=== PATIENT | male | born 1955 | race Caucasian/White ===

== ENCOUNTER → 2016-12-08 | Outpatient (CLI) | payer BC ==
[~2016-12-08] MED LIST: AMOX500T PO; ASPCH81 PO; CITA10TA8 PO; FLV1 PO; HYDC25 PO; LISI40TA PO; MULTTAB58 PO; PANT40TA PO; SIMV40TA2 PO; SPIR50TA2 PO
[2016-12-08 10:22] LABS: ESTIMATED AVERAGE GLUCOSE 131 mg/dl; HA1C FLAG Normal (Normal)
[2016-12-08 10:25] LABS: ALT/SGPT 140 U/L (12-78); AST/SGOT 115 U/L (15-37); BLOOD UREA NITROGEN 17 mg/dl (7-18); CARBON DIOXIDE 29 mmol/L (21-32); CHLORIDE 105 mmol/L (98-107); CHOLESTEROL 237 mg/dl (0-200); CREATININE 0.75 mg/dl (0.60-1.40); GLUCOSE 117 mg/dl (70-99); POTASSIUM 4.2 mmol/L (3.5-5.1); SODIUM 142 mmol/L (136-145); TRIGLYCERIDES 127 mg/dl (0-150); VERY LOW DENSITY LIPOPROT CALC 25 mg/dl
[2016-12-08 10:35] LABS: CHOLESTEROL/HDL RATIO 3.9; HDL CHOLESTEROL 61 mg/dl; LDL CHOLESTEROL CALCULATED 151 mg/dl
== END | disposition home or self-care (01) ==
LOC: C.LAB 08:38
DX: I10 Essential (primary) hypertension (principal); E78.5 Hyperlipidemia, unspecified; E03.9 Hypothyroidism, unspecified; E88.81 Metabolic syndrome and other insulin resistance

== ENCOUNTER 2025-08-20 13:18 | Inpatient (IN) ==
[2025-08-20] MEDS: diphenhydrAMINE 50 MG/ML VIAL IV STA (13:48)
[2025-08-20] MEDS ORDERED: STAT IV Infusion **Titration per Protocol STA ×2 (13:52→14:17)
[2025-08-20] MEDS: RAPID SEQUENCE INDUCTION BAG ONE (13:58)
[2025-08-20 14:02] LABS: Hematocrit (blood only) 39.9 % (42.0-52.0); Hemoglobin 13.9 g/dL (14.0-18.0); Immature Granulocytes # (auto) 0.01 K/uL (0.01-0.20); Immature Granulocytes % (auto) 0.2 %; Mean Corpuscular Hemoglobin 32.0 pg (25.0-34.0); Mean Corpuscular Volume 91.7 fL (80.0-100.0); Platelet Count 226 K/uL (130-400); RDW Standard Deviation 43.8 fL (36.4-46.3); Red Blood Count 4.35 M/uL (4.70-6.10); White Blood Count 5.95 K/ul (4.8-10.8)
[2025-08-20] MEDS ORDERED: SUCCINYLCHOLINE CHLORIDE 20 MG/ML 10 ML VIAL IV ONE (14:04)
[2025-08-20] MEDS ORDERED: ETOMIDATE 2 MG/ML 20 ML VIAL IV ONE (14:04)
[2025-08-20] MEDS ORDERED: MIDAZOLAM HCL 5 MG/ML 1 ML VIAL IV ONE (14:04)
[2025-08-20] MEDS: PROPOFOL BOLUS FROM BAG IV PRN (14:08)
[2025-08-20] MEDS: PROPOFOL BOLUS FROM BAG IV ONE (14:12)
[2025-08-20] MEDS: fentaNYL citrate 2,500 MCG/250 ML BAG IV SCH (14:12)
[2025-08-20 14:14] LABS: Alanine Aminotransferase 65.0 U/L (7-52); Albumin Globulin Ratio 1.1 (0.9-2); Albumin Level 4.2 gm/dl (3.4-5.0); Alkaline Phosphatase 91.0 U/L (34-104); Anion Gap 10.0 (3-11); Bilirubin,Total 1.0 mg/dl (0.2-1.0); Blood Urea Nitrogen 19.0 mg/dl (6-23); Calcium 9.8 mg/dl (8.6-10.3); Carbon Dioxide 26.0 mmol/L (21-32); Chloride 98.0 mmol/L (98-107); Creatinine Clr Calc Pharmacy 107.8 ml/min; Globulin 3.7 gm/dl (2.5-4.0); Glucose 221.0 mg/dl (70-99(Fasting)); Potassium 3.4 mmol/L (3.5-5.1); Sodium 134.0 mmol/L (136-145); Total Protein 7.9 gm/dl (6.0-8.3)
--- NOTE | 2025-08-20 14:25 | Emergency Department Note ---
Impression & Plan Angioedema due to angiotensin converting enzyme inhibitor (CHRISTI-I), Required emergent intubation, Hypokalemia, Acute hyponatremia ED Provider Note NAME: VAMSI BAKER AGE: 69 SEX: M : 1955 ARRIVES VIA: Ambulance INFORMANT: Patient, EMS ED PROVIDER(S): Esa Lowery DO CHIEF COMPLAINT: tongue swelling HPI: This is a 69-year-old male with the PMHx of HTN, HLD, LYNN on CPAP (noncomplaint), and morbid obesity presenting to [facility] for further evaluation of tongue swelling. Patient is accompanied by EMS who provide additional history. Patient states is now difficult for him to breathe as well as swallow saliva. Patient reports significant tongue swelling. He states this started abruptly at 1130 this morning. Patient states that he takes lisinopril but has taken this for a number of years. They deny fever or chills. No cough or congestion. Denies chest pain or palpitations. They deny abdominal pain, nausea and vomiting. No urinary complaints. No recent changes in bowel movements. Patient denies recent changes in medications or OTC supplements. Patient offers no other complaints, today. ADDITIONAL HISTORY OBTAINED: Per HPI Chronic Medical/Social Conditions Affecting Care: Per HPI PAST MEDICAL HISTORY: See Below PAST SURGICAL HISTORY: See Below FAMILY HISTORY: See Below SOCIAL HISTORY: See Below HOME MEDICATIONS: See Below ALLERGIES: See Below VITALS: See Below PHYSICAL EXAMINATION: GENERAL: Sitting up in bed, alert, well appearing, well nourished, no distress, non-toxic EYE EXAM: normal conjunctiva. OROPHARYNX: severe tongue swelling, L >> R. Difficult to visualize oropharynx. NECK: supple, no nuchal rigidity, no adenopathy, non-tender LUNGS: Clear to auscultation. Normal chest wall mechanics HEART: no murmurs, regular rate, regular rhythm ABDOMEN: abdomen soft, non-tender, no masses, no rebound or guarding. BACK: Back is symmetrical on inspection and there is no deformity, no midline tenderness, no CVA tenderness. SKIN: no rashes and no bruising UPPER EXTREMITIES: upper extremities are grossly normal. LOWER EXTREMITIES: No pitting edema. NEURO EXAM: Normal sensorium, GCS 15, normal speech, no gross weakness of arms, no gross weakness of legs. MEDICAL DECISION MAKING: Differential diagnoses includes but not limited to angioedema, allergic reaction, anaphylaxis, electrolyte derangements In summary, this is a 69 year old male who presented with angioedema. Differential as above. Nursing notes and pertinent past medical records reviewed. Vital signs reviewed and the patient is mildly tachycardic but otherwise afebrile and HDS. No evidence of systemic involvement or hemodynamic instability to suggest anaphylaxis. History and presentation revealed sudden onset of tongue swelling now with difficulty swallowing and controlling secretions. He is subjectively dyspneic as well. Physical examination revealed as above. As a result of my initial evaluation, the primary concern is impeding respiratory failure and airway compromise in the setting of angioedema. IV access was established and the patient was placed on CCRM. Therapeutics ordered include IV Benadryl, steroids and TXA bolus. Discussed extensively with patient and will proceed with elective but emergent intubation. Diagnostics interpreted by me include EKG and cardiac monitoring as listed below: -Cardiac Monitoring: An order was placed for continuous cardiac monitoring. The monitor shows a rate of 60-100s with regular rhythm. -ECG: normal sinus rhythm ventricular rate of beats. Patient no significant ST changes to suggest STEMI. There is a first-degree AV block. No significant interval changes otherwise. Patient completed laboratory studies and imaging. Results independently interpreted by me are mild anemia. No significant leukocytosis. Mild hyponatremia and hypokalemia. Mild hyperglycemia. Normal kidney function. AST > ALT elevation. Normal lactate. The patient was managed with emergent intubation and medications as above. ETT was 26cm at the teeth but still swallow on CXR as independently interpreted by me. He is ventilating and oxygenating appropriately. Will leave ETT at this place for now. Sedation was extremely difficult. He originally was on propofol with IVP Fentanyl and Midazolam. He was attempting to pull ETT and lines. Further boluses were attempted with minimal improvement. Precedex added with improvement. Thought to be beneficial in the setting of likely alcohol use disorder. Fentanyl gtt started. Unfortunately, the patient became progressively hypotensive and bradycardic on these medications. At this time, Precedex was discontinued and ketamine bolus with infusion was started. Patient had improvement in sedation following these medications. Patient remained relatively hemodynamically stable. Patient will need close observation in the ICU given his angioedema. He will require life long cessation from ACEi/ARB. Ultimately, the decision was made to admit the patient for angioedema with airway compromise. Patient was discussed with both the [facility], Dr. Paz, and [facility], Dr. Bloom. I discussed the case with the hospitalist service via telephone/TigerText and they are agreeable to admit the patient to their services. Based on the above, including the patient's age, coexisting illnesses, labs, imaging, and exam findings the decision to treat as an inpatient. I discussed the patient with the hospitalist team who recommended admission to their services. They received the medications, treatments, interventions indicated above and their condition remained critical but stable. I discussed my findings with the patient and their family and they understand and agree with the treatment plan. All patient / family questions were answered to their satisfaction. He Attempted call to patient's sister without answer x2. Consults/Care Managements Discussions: Per MDM ER treatment provided: See above Procedures: Endotracheal Intubation Indication: failure to protect airway, angioedema. The patient was on 100% oxygen via NRB prior to the procedure. Suction, airway equipment, RSI drugs, respiratory equipment, and appropriate personnel were prepared prior to the initiation of the procedure. A time out was taken. Induction was performed with etomidate and Carina. After observing the clinical benefit of the medications, the airway was easily visualized utilizing a GlideScope. A 7.5 size ETT tube was placed atraumatically to 26 cm using standard technique. The cuff inflated without signs of malfunction. There were bilateral breath sounds, positive colormetric change, no gastric sounds, a good capnography waveform, and post procedure pulse oximetry was 96%. Post intubation sedation and paralysis was administered using fentanyl IVP, Versed IVP and Propofol gtt. There were no complications besides difficulty in sedation, see above. Critical Care: I have personally spent 136 minutes of critical care time in direct management of this patient. This includes bedside care, interpretation of diagnostic studies, and testing, discussion with consultants, patient, and family members, and other require inpatient management activities. This 136 minutes is in excess of all separately billable procedures. The chart was completed utilizing [employer] Speech voice recognition software. Grammatical errors, random word insertions, pronoun errors, and incomplete sentences are an occasional consequence of this system due to software limitations, ambient noise, and hardware issues. Any formal questions or concerns about the content, text, or information contained within the body of this dictation should be directly addressed to the physician for clarification. Past Med/Surg History Problem List (Updated 08/20/25 @ 20:04 by Esa Lowery DO) Acute hyponatremia (Acute) Hypokalemia (Acute) Required emergent intubation (Acute) Angioedema due to angiotensin converting enzyme inhibitor (CHRISTI-I) (Acute) Alcohol use disorder Hypertension Required emergency intubation Angioedema due to angiotensin converting enzyme inhibitor (CHRISTI-I) Open wound of right foot Right foot ulcer Osteoarthritis of hips, bilateral Sacroiliitis Leg length discrepancy Spinal stenosis of lumbar region at multiple levels Vitamin B12 deficiency Homocystinemia Chronic rhinitis Ulcerative proctosigmoiditis Prediabetes (Chronic) no meds, monitored Hx of seborrheic keratosis Hx of colonic polyp Hypertension (Chronic) Dyslipidemia (Chronic) Seborrheic dermatitis NAFL (nonalcoholic fatty liver) (Chronic) Obstructive sleep apnea (Chronic) CPAP Morbid obesity (Chronic) Iron deficiency anemia (Chronic) Hepatic fibrosis (Chronic) Chronic scapular pain Medical History Ulcerative (chronic) proctosigmoiditis Pre-diabetes diet controlled, no meds Sleep apnea CPAP NAFLD (nonalcoholic fatty liver disease) HTN (hypertension) Dyslipidemia Chronic rhinitis Hx of iron deficiency anemia resolved Medical cannabis use Anxiety H/O: upper GI bleed (~2018) Surgical History Hx of colonoscopy with polypectomy S/P right knee arthroscopy S/P left knee arthroscopy History of esophagogastroduodenoscopy (EGD) History of tonsillectomy Family History Brother Myocardial infarction Colorectal cancer Hypertension Father Colorectal cancer Hypertension Sister Heart disease Mother Diabetes Cancer Hypertension Other No family history of adverse response to anesthesia Denies family history of Ovarian cancer Prostate cancer Breast cancer Social History Smoking Status: Unknown if ever smoked Tobacco Type: Declines Age Started Using Tobacco: 22; Age Quit Using Tobacco: 34; packs per day: 1; Second Hand Exposure: No; Do You Dip or Chew Tobacco: No; Hx Alcohol Use: Yes Alcohol type: hard liquor Alcohol Intake Frequency: 4 or More x per/Week Hx Substance Use: Yes Prescribed Medications: Marijuana Last Used Substance Other:: MARIJUANA CARD PER CHART Preferred Language: [place] Citizen Communication Ability: Effective Visual Impairment: No Limitations Hearing Ability: Normal Electrical Controls Designer Required: No Beliefs That Will Affect Care: None marital status: / Current Living Situation: Alone current occupational status: retired Feels Safe at Home: Yes Childhood Exposure to Second-Hand Smoke: Yes Diet: regular caffeine: Yes during the past year weight has: increased > 10 lbs Dental Care, Regularly: No Physical Activity Frequency: 3-4 Times per Week Seatbelt Use: always Sunscreen Use: Yes Assistive Devices: Contacts, CPAP and Hearing Aid - Bilateral Allergies Allergies Allergy/AdvReac Type Severity Reaction Status Date / Time dust mites Allergy Mild Uncoded 07/30/25 14:44 dogs Allergy Uncoded 07/30/25 14:44 milk weed AdvReac Congested Uncoded 07/30/25 14:44 Home Meds Home Medications Medication Instructions Recorded Confirmed Medical Marijuana 1 applic PO UD PRN anxiety 11/23/23 08/20/25 vitamin B complex 1 tab PO DAILY 01/25/25 08/20/25 lisinopril 40 mg tablet 40 mg PO DAILY 08/20/25 08/20/25 rosuvastatin 10 mg tablet 10 mg PO DAILY 08/20/25 08/20/25 Previous Rx's Medication Instructions Recorded fluticasone propionate 50 2 spray intranasal DAILY #16 grams 01/04/25 mcg/actuation nasal spray,suspension ipratropium bromide 21 mcg (0.03 2 spray intranasal TID PRN 01/04/25 %) nasal spray postnasal drip #30 mL amlodipine 5 mg tablet 5 mg PO QAM #90 tabs 02/13/25 hydrochlorothiazide 25 mg tablet 25 mg PO QAM #90 tabs 02/13/25 mesalamine 1.2 gram tablet,delayed 2.4 g (2 x 1.2 gram) PO QAM #180 03/15/25 release tabs hydroxyzine HCl 50 mg tablet 50 mg PO HS PRN anxiety #90 tabs 07/30/25 Results & Data (ED) Vital Signs Vital Signs - 24 hr 08/20/25 13:44 08/20/25 13:47 08/20/25 13:50 Temperature 37.1 C Temperature Source Oral Pulse Rate 96 H 96 H 90 Pulse Rate [Apical] Pulse Rate from SpO2 Sensor Respiratory Rate 20 20 Respiratory Effort / Characteristics Non-Labored Respiratory Depth Normal Respiratory Pattern Regular Blood Pressure 138/78 Blood Pressure [Right Arm] Blood Pressure Mean 98 Blood Pressure Mean [Right Arm] Blood Pressure Position Sitting Pulse Oximetry 98 98 Oxygen Delivery Method Room Air Room Air Oxygen Flow Rate Fraction of Inspired Oxygen Sepsis Recent Fever Within 48 Hours No Sepsis New/Unexplained Change in Mental Status N/A Sepsis Action Taken by Nursing No Action Required End-Tidal CO2 End Tidal CO2 (18-54mmHg) 08/20/25 13:57 08/20/25 14:00 08/20/25 14:00 Temperature Temperature Source Pulse Rate 88 Pulse Rate [Apical] 80 106 H Pulse Rate from SpO2 Sensor Respiratory Rate 19 18 18 Respiratory Effort / Characteristics Respiratory Depth Respiratory Pattern Blood Pressure Blood Pressure [Right Arm] 144/83 H 217/140 H Blood Pressure Mean Blood Pressure Mean [Right Arm] 103 165 Blood Pressure Position Pulse Oximetry 98 99 94 Oxygen Delivery Method Oxymask Mechanical Vent Oxygen Flow Rate 12 Fraction of Inspired Oxygen 40 Sepsis Recent Fever Within 48 Hours Sepsis New/Unexplained Change in Mental Status Sepsis Action Taken by Nursing End-Tidal CO2 46 End Tidal CO2 (18-54mmHg) 47 08/20/25 14:05 08/20/25 14:24 08/20/25 14:25 Temperature Temperature Source Pulse Rate 76 Pulse Rate [Apical] 85 Pulse Rate from SpO2 Sensor 78 Respiratory Rate 18 21 Respiratory Effort / Characteristics Respiratory Depth Respiratory Pattern Blood Pressure 123/80 Blood Pressure [Right Arm] 209/129 H Blood Pressure Mean 91 Blood Pressure Mean [Right Arm] 155 Blood Pressure Position Pulse Oximetry 98 96 Oxygen Delivery Method Mechanical Vent Oxygen Flow Rate Fraction of Inspired Oxygen Sepsis Recent Fever Within 48 Hours Sepsis New/Unexplained Change in Mental Status Sepsis Action Taken by Nursing End-Tidal CO2 51 End Tidal CO2 (18-54mmHg) 47 08/20/25 14:25 08/20/25 14:25 08/20/25 14:25 Temperature Temperature Source Pulse Rate Pulse Rate [Apical] Pulse Rate from SpO2 Sensor Respiratory Rate Respiratory Effort / Characteristics Respiratory Depth Respiratory Pattern Blood Pressure 123/80 123/80 123/80 Blood Pressure [Right Arm] Blood Pressure Mean 91 91 91 Blood Pressure Mean [Right Arm] Blood Pressure Position Pulse Oximetry Oxygen Delivery Method Oxygen Flow Rate Fraction of Inspired Oxygen Sepsis Recent Fever Within 48 Hours Sepsis New/Unexplained Change in Mental Status Sepsis Action Taken by Nursing End-Tidal CO2 End Tidal CO2 (18-54mmHg) 08/20/25 14:25 08/20/25 14:27 08/20/25 14:30 Temperature Temperature Source Pulse Rate 71 72 Pulse Rate [Apical] Pulse Rate from SpO2 Sensor 71 73 Respiratory Rate 19 20 Respiratory Effort / Characteristics Respiratory Depth Respiratory Pattern Blood Pressure 123/80 Blood Pressure [Right Arm] Blood Pressure Mean 91 Blood Pressure Mean [Right Arm] Blood Pressure Position Pulse Oximetry 96 96 Oxygen Delivery Method Oxygen Flow Rate Fraction of Inspired Oxygen Sepsis Recent Fever Within 48 Hours Sepsis New/Unexplained Change in Mental Status Sepsis Action Taken by Nursing End-Tidal CO2 48 48 End Tidal CO2 (18-54mmHg) 08/20/25 14:30 08/20/25 14:30 08/20/25 14:30 Temperature Temperature Source Pulse Rate Pulse Rate [Apical] Pulse Rate from SpO2 Sensor Respiratory Rate Respiratory Effort / Characteristics Respiratory Depth Respiratory Pattern Blood Pressure 101/66 101/66 101/66 Blood Pressure [Right Arm] Blood Pressure Mean 79 79 79 Blood Pressure Mean [Right Arm] Blood Pressure Position Pulse Oximetry Oxygen Delivery Method Oxygen Flow Rate Fraction of Inspired Oxygen Sepsis Recent Fever Within 48 Hours Sepsis New/Unexplained Change in Mental Status Sepsis Action Taken by Nursing End-Tidal CO2 End Tidal CO2 (18-54mmHg) 08/20/25 14:30 08/20/25 14:30 08/20/25 14:33 Temperature Temperature Source Pulse Rate 70 Pulse Rate [Apical] Pulse Rate from SpO2 Sensor 72 Respiratory Rate 19 Respiratory Effort / Characteristics Respiratory Depth Respiratory Pattern Blood Pressure 101/66 101/66 Blood Pressure [Right Arm] Blood Pressure Mean 79 79 Blood Pressure Mean [Right Arm] Blood Pressure Position Pulse Oximetry 96 Oxygen Delivery Method Oxygen Flow Rate Fraction of Inspired Oxygen Sepsis Recent Fever Within 48 Hours Sepsis New/Unexplained Change in Mental Status Sepsis Action Taken by Nursing End-Tidal CO2 46 End Tidal CO2 (18-54mmHg) 08/20/25 14:35 08/20/25 14:35 08/20/25 14:35 Temperature Temperature Source Pulse Rate Pulse Rate [Apical] Pulse Rate from SpO2 Sensor Respiratory Rate Respiratory Effort / Characteristics Respiratory Depth Respiratory Pattern Blood Pressure 116/63 116/63 116/63 Blood Pressure [Right Arm] Blood Pressure Mean 79 79 79 Blood Pressure Mean [Right Arm] Blood Pressure Position Pulse Oximetry Oxygen Delivery Method Oxygen Flow Rate Fraction of Inspired Oxygen Sepsis Recent Fever Within 48 Hours Sepsis New/Unexplained Change in Mental Status Sepsis Action Taken by Nursing End-Tidal CO2 End Tidal CO2 (18-54mmHg) 08/20/25 14:35 08/20/25 14:35 08/20/25 14:36 Temperature Temperature Source Pulse Rate 71 Pulse Rate [Apical] Pulse Rate from SpO2 Sensor 72 Respiratory Rate 19 Respiratory Effort / Characteristics Respiratory Depth Respiratory Pattern Blood Pressure 116/63 116/63 Blood Pressure [Right Arm] Blood Pressure Mean 79 79 Blood Pressure Mean [Right Arm] Blood Pressure Position Pulse Oximetry 96 Oxygen Delivery Method Oxygen Flow Rate Fraction of Inspired Oxygen Sepsis Recent Fever Within 48 Hours Sepsis New/Unexplained Change in Mental Status Sepsis Action Taken by Nursing End-Tidal CO2 49 End Tidal CO2 (18-54mmHg) 08/20/25 14:39 08/20/25 14:40 08/20/25 14:40 Temperature Temperature Source Pulse Rate 69 Pulse Rate [Apical] Pulse Rate from SpO2 Sensor 70 Respiratory Rate 18 Respiratory Effort / Characteristics Respiratory Depth Respiratory Pattern Blood Pressure 98/60 L 98/60 L Blood Pressure [Right Arm] Blood Pressure Mean 78 78 Blood Pressure Mean [Right Arm] Blood Pressure Position Pulse Oximetry 96 Oxygen Delivery Method Oxygen Flow Rate Fraction of Inspired Oxygen Sepsis Recent Fever Within 48 Hours Sepsis New/Unexplained Change in Mental Status Sepsis Action Taken by Nursing End-Tidal CO2 46 End Tidal CO2 (18-54mmHg) 08/20/25 14:40 08/20/25 14:40 08/20/25 14:40 Temperature Temperature Source Pulse Rate Pulse Rate [Apical] Pulse Rate from SpO2 Sensor Respiratory Rate Respiratory Effort / Characteristics Respiratory Depth Respiratory Pattern Blood Pressure 98/60 L 98/60 L 98/60 L Blood Pressure [Right Arm] Blood Pressure Mean 78 78 78 Blood Pressure Mean [Right Arm] Blood Pressure Position Pulse Oximetry Oxygen Delivery Method Oxygen Flow Rate Fraction of Inspired Oxygen Sepsis Recent Fever Within 48 Hours Sepsis New/Unexplained Change in Mental Status Sepsis Action Taken by Nursing End-Tidal CO2 End Tidal CO2 (18-54mmHg) 08/20/25 14:42 08/20/25 14:45 08/20/25 14:45 Temperature Temperature Source Pulse Rate 68 69 Pulse Rate [Apical] Pulse Rate from SpO2 Sensor 70 70 Respiratory Rate 18 18 Respiratory Effort / Characteristics Respiratory Depth Respiratory Pattern Blood Pressure 104/64 Blood Pressure [Right Arm] Blood Pressure Mean 80 Blood Pressure Mean [Right Arm] Blood Pressure Position Pulse Oximetry 96 96 Oxygen Delivery Method Oxygen Flow Rate Fraction of Inspired Oxygen Sepsis Recent Fever Within 48 Hours Sepsis New/Unexplained Change in Mental Status Sepsis Action Taken by Nursing End-Tidal CO2 44 46 End Tidal CO2 (18-54mmHg) 08/20/25 14:45 08/20/25 14:45 08/20/25 14:45 Temperature Temperature Source Pulse Rate Pulse Rate [Apical] Pulse Rate from SpO2 Sensor Respiratory Rate Respiratory Effort / Characteristics Respiratory Depth Respiratory Pattern Blood Pressure 104/64 104/64 104/64 Blood Pressure [Right Arm] Blood Pressure Mean 80 80 80 Blood Pressure Mean [Right Arm] Blood Pressure Position Pulse Oximetry Oxygen Delivery Method Oxygen Flow Rate Fraction of Inspired Oxygen Sepsis Recent Fever Within 48 Hours Sepsis New/Unexplained Change in Mental Status Sepsis Action Taken by Nursing End-Tidal CO2 End Tidal CO2 (18-54mmHg) 08/20/25 14:45 08/20/25 14:48 08/20/25 14:50 Temperature Temperature Source Pulse Rate 67 Pulse Rate [Apical] Pulse Rate from SpO2 Sensor 68 Respiratory Rate 18 Respiratory Effort / Characteristics Respiratory Depth Respiratory Pattern Blood Pressure 104/64 90/55 L Blood Pressure [Right Arm] Blood Pressure Mean 80 71 Blood Pressure Mean [Right Arm] Blood Pressure Position Pulse Oximetry 96 Oxygen Delivery Method Oxygen Flow Rate Fraction of Inspired Oxygen Sepsis Recent Fever Within 48 Hours Sepsis New/Unexplained Change in Mental Status Sepsis Action Taken by Nursing End-Tidal CO2 45 End Tidal CO2 (18-54mmHg) 08/20/25 14:50 08/20/25 14:50 08/20/25 14:50 Temperature Temperature Source Pulse Rate Pulse Rate [Apical] Pulse Rate from SpO2 Sensor Respiratory Rate Respiratory Effort / Characteristics Respiratory Depth Respiratory Pattern Blood Pressure 90/55 L 90/55 L 90/55 L Blood Pressure [Right Arm] Blood Pressure Mean 71 71 71 Blood Pressure Mean [Right Arm] Blood Pressure Position Pulse Oximetry Oxygen Delivery Method Oxygen Flow Rate Fraction of Inspired Oxygen Sepsis Recent Fever Within 48 Hours Sepsis New/Unexplained Change in Mental Status Sepsis Action Taken by Nursing End-Tidal CO2 End Tidal CO2 (18-54mmHg) 08/20/25 14:50 08/20/25 14:51 08/20/25 14:54 Temperature Temperature Source Pulse Rate 68 68 Pulse Rate [Apical] Pulse Rate from SpO2 Sensor 65 69 Respiratory Rate 18 18 Respiratory Effort / Characteristics Respiratory Depth Respiratory Pattern Blood Pressure 90/55 L Blood Pressure [Right Arm] Blood Pressure Mean 71 Blood Pressure Mean [Right Arm] Blood Pressure Position Pulse Oximetry 96 96 Oxygen Delivery Method Oxygen Flow Rate Fraction of Inspired Oxygen Sepsis Recent Fever Within 48 Hours Sepsis New/Unexplained Change in Mental Status Sepsis Action Taken by Nursing End-Tidal CO2 45 44 End Tidal CO2 (18-54mmHg) 08/20/25 14:55 08/20/25 14:55 08/20/25 14:55 Temperature Temperature Source Pulse Rate Pulse Rate [Apical] Pulse Rate from SpO2 Sensor Respiratory Rate Respiratory Effort / Characteristics Respiratory Depth Respiratory Pattern Blood Pressure 97/58 L 97/58 L 97/58 L Blood Pressure [Right Arm] Blood Pressure Mean 71 71 71 Blood Pressure Mean [Right Arm] Blood Pressure Position Pulse Oximetry Oxygen Delivery Method Oxygen Flow Rate Fraction of Inspired Oxygen Sepsis Recent Fever Within 48 Hours Sepsis New/Unexplained Change in Mental Status Sepsis Action Taken by Nursing End-Tidal CO2 End Tidal CO2 (18-54mmHg) 08/20/25 14:55 08/20/25 14:55 08/20/25 14:57 Temperature Temperature Source Pulse Rate 66 Pulse Rate [Apical] Pulse Rate from SpO2 Sensor 67 Respiratory Rate 18 Respiratory Effort / Characteristics Respiratory Depth Respiratory Pattern Blood Pressure 97/58 L 97/58 L Blood Pressure [Right Arm] Blood Pressure Mean 71 71 Blood Pressure Mean [Right Arm] Blood Pressure Position Pulse Oximetry 96 Oxygen Delivery Method Oxygen Flow Rate Fraction of Inspired Oxygen Sepsis Recent Fever Within 48 Hours Sepsis New/Unexplained Change in Mental Status Sepsis Action Taken by Nursing End-Tidal CO2 45 End Tidal CO2 (18-54mmHg) 08/20/25 15:00 08/20/25 15:00 08/20/25 15:00 Temperature Temperature Source Pulse Rate 67 Pulse Rate [Apical] Pulse Rate from SpO2 Sensor 66 Respiratory Rate 18 Respiratory Effort / Characteristics Respiratory Depth Respiratory Pattern Blood Pressure 110/56 L 110/56 L Blood Pressure [Right Arm] Blood Pressure Mean 67 67 Blood Pressure Mean [Right Arm] Blood Pressure Position Pulse Oximetry 96 Oxygen Delivery Method Oxygen Flow Rate Fraction of Inspired Oxygen Sepsis Recent Fever Within 48 Hours Sepsis New/Unexplained Change in Mental Status Sepsis Action Taken by Nursing End-Tidal CO2 45 End Tidal CO2 (18-54mmHg) 08/20/25 15:20 08/20/25 15:30 08/20/25 15:45 Temperature Temperature Source Pulse Rate Pulse Rate [Apical] 58 L 59 L 58 L Pulse Rate from SpO2 Sensor Respiratory Rate 18 18 18 Respiratory Effort / Characteristics Respiratory Depth Respiratory Pattern Blood Pressure Blood Pressure [Right Arm] 98/59 L 87/55 L 96/60 L Blood Pressure Mean Blood Pressure Mean [Right Arm] 72 65 72 Blood Pressure Position Pulse Oximetry 96 96 97 Oxygen Delivery Method Mechanical Vent Mechanical Vent Mechanical Vent Oxygen Flow Rate Fraction of Inspired Oxygen Sepsis Recent Fever Within 48 Hours Sepsis New/Unexplained Change in Mental Status Sepsis Action Taken by Nursing End-Tidal CO2 End Tidal CO2 (18-54mmHg) 48 44 44 Laboratory Data 08/20/25 13:38 08/20/25 13:38 Lab Results 08/20/25 Range/Units 13:38 WBC 5.95 (4.8-10.8) K/ul RBC 4.35 L (4.70-6.10) M/uL Hgb 13.9 L (14.0-18.0) g/dL Hct 39.9 L (42.0-52.0) % MCV 91.7 (80.0-100.0) fL MCH 32.0 (25.0-34.0) pg MCHC 34.8 (32.0-36.0) g/dL RDW Std Deviation 43.8 (36.4-46.3) fL RDW Coeff of [place]nn 13.0 (11.5-14.5) % Plt Count 226 (130-400) K/uL MPV 9.9 (9.4-12.4) fL Immature Gran % (Auto) 0.2 % Neut % (Auto) 68.3 % Lymph % (Auto) 18.3 % Webb % (Auto) 10.9 % Eos % (Auto) 1.3 % Baso % (Auto) 1.0 % Neut # (Auto) 4.06 (1.40-6.50) K/uL Lymph # (Auto) 1.09 L (1.20-3.40) K/uL Webb # (Auto) 0.65 H (0.11-0.59) K/uL Eos # (Auto) 0.08 (0.00-0.50) K/uL Baso # (Auto) 0.06 (0.00-0.20) K/uL Immature Gran # (Auto) 0.01 (0.01-0.20) K/uL Sodium 134 L (136-145) mmol/L Potassium 3.4 L (3.5-5.1) mmol/L Chloride 98 (98-107) mmol/L Carbon Dioxide 26 (21-32) mmol/L Anion Gap 10 (3-11) BUN 19 (6-23) mg/dl Creatinine 0.94 (0.6-1.4) mg/dl Est Cr Clr Drug Dosing 107.8 ml/min eGFR 88.85 BUN/Creatinine Ratio 20.2 H (10-20) Glucose 221 H (70-99(Fasting)) mg/dl Calcium 9.8 (8.6-10.3) mg/dl Total Bilirubin 1.0 (0.2-1.0) mg/dl AST 87 H (13-39) U/L ALT 65 H (7-52) U/L Alkaline Phosphatase 91 (34-104) U/L Total Protein 7.9 (6.0-8.3) gm/dl Albumin 4.2 (3.4-5.0) gm/dl Globulin 3.7 (2.5-4.0) gm/dl Albumin/Globulin Ratio 1.1 (0.9-2) Administered Medications Propofol (Diprivan) 1,000 mg in 100 mls @ 24.66 mls/hr IV .Q4H4M [facility]; Protocol Stop: 08/23/25 13:59 Last Titration: 08/20/25 19:10 Dose: 30 mcg/kg/min, 24.7 mls/hr Documented By: CRW Co-signed By: SG Admin: 08/20/25 18:32 Dose: 30 mcg/kg/min, 24.7 mls/hr Documented By: CRW Co-signed By: DORIS Titration: 08/20/25 18:30 Dose: Infused Documented By: CRW Co-signed By: KJS Titration: 08/20/25 18:05 Dose: 30 mcg/kg/min, 24.7 mls/hr Documented By: Titration: 08/20/25 17:55 Dose: 35 mcg/kg/min, 28.8 mls/hr Documented By: Titration: 08/20/25 17:00 Dose: 40 mcg/kg/min, 32.9 mls/hr Documented By: Titration: 08/20/25 16:31 Dose: 20 mcg/kg/min, 16.4 mls/hr Documented By: Titration: 08/20/25 16:26 Dose: 10 mcg/kg/min, 8.2 mls/hr Documented By: Titration: 08/20/25 16:21 Dose: 20 mcg/kg/min, 16.4 mls/hr Documented By: Titration: 08/20/25 16:16 Dose: 30 mcg/kg/min, 24.7 mls/hr Documented By: Titration: 08/20/25 15:16 Dose: 35 mcg/kg/min, 28.8 mls/hr Documented By: Titration: 08/20/25 15:05 Dose: 30 mcg/kg/min, 24.7 mls/hr Documented By: Titration: 08/20/25 14:51 Dose: 35 mcg/kg/min, 28.8 mls/hr Documented By: Titration: 08/20/25 14:41 Dose: 40 mcg/kg/min, 32.9 mls/hr Documented By: Titration: 08/20/25 14:18 Dose: 50 mcg/kg/min, 41.1 mls/hr Documented By: Titration: 08/20/25 14:10 Dose: 40 mcg/kg/min, 32.9 mls/hr Documented By: Titration: 08/20/25 14:07 Dose: 30 mcg/kg/min, 24.7 mls/hr Documented By: Admin: 08/20/25 14:03 Dose: 20 mcg/kg/min, 16.4 mls/hr Documented By: AVM Fentanyl Citrate (Fentanyl Citrate) 2,500 mcg in 250 mls @ 10 mls/hr IV .Q25H [facility]; Protocol Stop: 09/03/25 13:59 Last Titration: 08/20/25 19:10 Dose: 100 mcg/hr, 10 mls/hr Documented By: GRACIA Co-signed By: SG Titration: 08/20/25 17:00 Dose: 100 mcg/hr, 10 mls/hr Documented By: CRW Co-signed By: CB Titration: 08/20/25 15:16 Dose: 75 mcg/hr, 7.5 mls/hr Documented By: NANO Co-signed By: AVM Titration: 08/20/25 14:18 Dose: 50 mcg/hr, 5 mls/hr Documented By: ARLYN Co-signed By: MONE Admin: 08/20/25 14:12 Dose: 25 mcg/hr, 2.5 mls/hr Documented By: ARLYN Co-signed By: MONE Ketamine HCl (Ketalar / Nss) 500 mg in 500 mls @ 7.53 mls/hr IV .Q24H [facility]; Protocol Stop: 09/19/25 15:44 Last Titration: 08/20/25 19:10 Dose: 0.2 mg/kg/hr, 15.1 mls/hr Documented By: Titration: 08/20/25 16:59 Dose: 0.2 mg/kg/hr, 15.1 mls/hr Documented By: Titration: 08/20/25 16:42 Dose: 0.15 mg/kg/hr, 11.3 mls/hr Documented By: Admin: 08/20/25 16:07 Dose: 0.1 mg/kg/hr, 7.5 mls/hr Documented By: NANO Co-signed By: CHAVA Potassium Chloride/Sodium Chloride (Normal Saline W/20 Meq Kcl) 20 meq in 1,000 mls @ 100 mls/hr IV .Q10H [facility] Stop: 08/23/25 17:59 Last Admin: 08/20/25 18:00 Dose: 100 mls/hr Documented By: GRACIA Famotidine (Pepcid 20mg Iv Push) 20 mg in 5 mls @ 2.5 mls/min IV Q12H [facility] Stop: 09/19/25 17:59 Last Admin: 08/20/25 18:30 Dose: 2.5 mls/min Documented By: GRACIA Thiamine HCl 200 mg/ Sodium (Chloride) 52 mls @ 210 mls/hr IV QAM [facility] Stop: 09/19/25 18:14 Last Infusion: 08/20/25 19:01 Dose: Infused Documented By: Admin: 08/20/25 18:14 Dose: 210 mls/hr Documented By: GRACIA Propofol (Propofol Bolus From Bag) 20 mg IV Q5M PRN PRN Reason: Sedation Stop: 08/23/25 13:51 Last Admin: 08/20/25 16:59 Dose: 20 mg Documented By: NANO Co-signed By: MONE Admin: 08/20/25 16:37 Dose: 30 mg Documented By: NANO Co-signed By: WILL Admin: 08/20/25 15:18 Dose: 30 mg Documented By: NANO Co-signed By: MINOO Admin: 08/20/25 14:08 Dose: 20 mg Documented By: ARLYN Co-signed By: MONE Discontinued Medications Diphenhydramine HCl (Diphenhydramine 50 Mg/Ml Vial) 50 mg IV NOW STA Stop: 08/20/25 13:32 Last Admin: 08/20/25 13:48 Dose: 50 mg Documented By: MONE Fentanyl Citrate (Fentanyl Citrate 2,500 Mcg/250 Ml Bag) Confirm Administered Dose 2,500 mcg IV .STK-MED ONE Stop: 08/20/25 13:50 Last Admin: 08/20/25 14:59 Dose: Not Given Documented By: ARLYN Tranexamic Acid 1,000 mg/ (Sodium Chloride) 60 mls @ 240 mls/hr IV PREOP ONE Stop: 08/20/25 13:32 Last Infusion: 08/20/25 14:45 Dose: Infused Documented By: Admin: 08/20/25 14:29 Dose: 240 mls/hr Documented By: ARLYN Dexmedetomidine/Sodium Chloride (Precedex) 200 mcg in 50 mls @ 6.85 mls/hr IV .Q7H18M [facility]; Protocol Stop: 08/24/25 14:29 Last Titration: 08/20/25 15:57 Dose: Infused Documented By: Titration: 08/20/25 15:28 Dose: 0.3 mcg/kg/hr, 10.3 mls/hr Documented By: Titration: 08/20/25 15:16 Dose: 0.4 mcg/kg/hr, 13.7 mls/hr Documented By: Titration: 08/20/25 15:05 Dose: 0.3 mcg/kg/hr, 10.3 mls/hr Documented By: Admin: 08/20/25 14:27 Dose: 0.2 mcg/kg/hr, 6.9 mls/hr Documented By: ARLYN Parenteral Electrolytes (Plasma-Lyte A Ph 7.4) 1,000 mls @ 999 mls/hr IV .Q1H1M [facility] Stop: 08/20/25 16:30 Last Infusion: 08/20/25 19:11 Dose: Infused Documented By: Admin: 08/20/25 15:31 Dose: 999 mls/hr Documented By: NANO Ketamine HCl (Ketamine Hcl Inj 50 Mg/Ml 10 Ml Vial) 40 mg 0.5 mg/kg (40 mg) IV NOW ONE Stop: 08/20/25 15:45 Last Admin: 08/20/25 16:05 Dose: Not Given Documented By: NANO Ketamine HCl (Ketamine Hcl 10mg/Ml Syr) Confirm Administered Dose 50 mg .ROUTE .STK-MED ONE Stop: 08/20/25 15:58 Last Admin: 08/20/25 16:00 Dose: Not Given Documented By: NANO Ketamine HCl (Ketamine Hcl 10mg/Ml Syr) 40 mg IV NOW STA Stop: 08/20/25 16:06 Last Admin: 08/20/25 16:06 Dose: 40 mg Documented By: NANO Methylprednisolone (Methylprednisolone 125 Mg/2 Ml Vial) 125 mg IV NOW STA Stop: 08/20/25 13:32 Last Admin: 08/20/25 13:48 Dose: 125 mg Documented By: MONE Midazolam HCl (Midazolam Hcl 5 Mg/Ml 2ml Vial) Confirm Administered Dose 10 mg .ROUTE .STK-MED ONE Stop: 08/20/25 16:35 Last Admin: 08/20/25 17:54 Dose: Not Given Documented By: GRACIA Miscellaneous (Rapid Sequence Induction Bag) Confirm Administered Dose 1 each N/A .STK-MED ONE Stop: 08/20/25 13:41 Last Admin: 08/20/25 13:58 Dose: 1 each Documented By: ARLYN Seoaneous (Stat Iv/Im) 1 each N/A NOW STA Stop: 08/20/25 15:45 Last Admin: 08/20/25 15:54 Dose: 1 each Documented By: NANO Propofol (Propofol Iv Emulsion 10 Mg/Ml 100 Ml Vial) Confirm Administered Dose 1,000 mg IV .STK-MED ONE Stop: 08/20/25 13:50 Last Admin: 08/20/25 14:59 Dose: Not Given Documented By: ARLYN Propofol (Propofol Bolus From Bag) 50 mg IV NOW ONE Stop: 08/20/25 14:11 Last Admin: 08/20/25 14:12 Dose: 50 mg Documented By: ARLYN Co-signed By: MONE Imaging Data Radiologist's Impression: Chest X-Ray 08/20/25 13:31 XR chest 1V portable HISTORY: 69 years-old Male Dyspnea acute shortness of breath COMPARISON: Chest radiograph 04/24/2015 TECHNIQUE: AP view of the chest FINDINGS: Endotracheal tube overlies the midline, 5.5 cm superior to the shaan. Cardiac silhouette is enlarged. Hypoinflation with bronchovascular crowding. No pneumothorax, large pleural effusion or overt pulmonary edema. Lateral left midlung atelectasis versus scarring. The right lateral chest is excluded from the [id number]. Distal tip of enteric tube projects over the stomach. IMPRESSION: 1. Limited exam secondary to technologist excluding portions of the patient's anatomy. 2. Endotracheal and enteric tube positioning as above. 3. Hypoinflation. ACT 112: Negative or not required by law. The above report was generated using voice recognition software. It may contain grammatical, syntax or spelling errors. Electronically signed by: Miky Lion M.D. 08/20/2025 2:37 PM Discharge Plan Visit Data Chief Complaint: Facial Injury/Pain Stated Complaint: SOB ED Provider: Esa Lowery Discharge Problem: Angioedema due to angiotensin converting enzyme inhibitor (CHRISTI-I), Required emergent intubation, Hypokalemia, Acute hyponatremia Patient Disposition: Admitted As Inpatient Condition: Critical Discharge Instructions Interventions: ED Discharge Assessment Last Done: 08/20/25 17:20
[2025-08-20] MEDS: dexMEDEtomidine 200 MCG/50 ML BAG IV SCH (14:27)
[2025-08-20] MEDS: TRANEXAMIC ACID 1,000 MG in SODIUM CHLORIDE 0.9% 50 ML IV ONE (14:29)
--- NOTE | 2025-08-20 14:38 | XRay Report ---
XR chest 1V portable HISTORY: 69 years-old Male Dyspnea acute shortness of breath COMPARISON: Chest radiograph 04/24/2015 TECHNIQUE: AP view of the chest FINDINGS: Endotracheal tube overlies the midline, 5.5 cm superior to the shaan. Cardiac silhouette is enlarged . Hypoinflation with bronchovascular crowding. No pneumothorax, large pleural effusion or overt pulmo nary edema. Lateral left midlung atelectasis versus scarring. The right lateral chest is excluded fro m the [id number]. Distal tip of enteric tube projects over the stomach. IMPRESSION: 1. Limited exam secondary to technologist excluding portions of the patient's anatomy. 2. Endotracheal and enteric tube positioning as above. 3. Hypoinflation. ACT 112: Negative or not required by law. The above report was generated using voice recognition software. It may contain grammatical, syntax o r spelling errors. Electronically signed by: Miky Lion M.D. 08/20/2025 2:37 PM
--- NOTE | 2025-08-20 14:40 | Electrocardiogram Report ---
Test Reason : Blood Pressure : */* mmHG Vent. Rate : 93 BPM Atrial Rate : 93 BPM P-R Int : 236 ms QRS Dur : 102 ms QT Int : 354 ms P-R-T Axes : 72 -44 101 degrees QTcB Int : 440 ms Sinus rhythm with 1st degree A-V block Left axis deviation Left ventricular hypertrophy with repolarization abnormality Poor R wave progression, consider anterior AK vs. lead placement vs. LVH Abnormal ECG Confirmed by Jose Howe ([id number]) on 08/20/2025 2:40:14 PM Referred By: Confirmed By: Jose Hwoe
[2025-08-20] MEDS: fentaNYL citrate 2,500 MCG/250 ML BAG IV ONE (14:59)
[2025-08-20] MEDS: PROPOFOL IV EMULSION 10 MG/ML 100 ML VIAL IV ONE (14:59)
[2025-08-20] MEDS: PLASMA-LYTE A 1,000 ML IV ONE (15:31)
[2025-08-20] MEDS: STAT IV/IM STA (15:54)
[2025-08-20] MEDS: KETAMINE HCL 10MG/ML SYR ONE (16:00)
--- NOTE | 2025-08-20 16:01 | History & Physical Report ---
Date of Service August 20, 2025 Assessment & Plan (1) Angioedema due to angiotensin converting enzyme inhibitor (CHRISTI-I): Plan: Lisinopril has been placed on hold. The patient is currently intubated for airway protection. Continue intravenous Solu-Medrol and intravenous Benadryl. Continue sedation. Admit to ICU for critical care consultation and ventilator management with subsequent weaning (2) HTN (hypertension): Plan: Currently stable. Will use intravenous medications as needed to control blood pressure (3) Dyslipidemia: Plan: Currently stable. He takes rosuvastatin (4) NAFLD (nonalcoholic fatty liver disease): Plan: LFTs are mildly elevated and will be followed (5) Morbid obesity: Plan: BMI greater than 40. Significant weight loss recommended Plan Anticipate eventual discharge back to home off lisinopril in the next 2-3 days History of Present Illness Chief Complaint: Tongue swelling Primary Care Provider: Haresh Davidson, III, DIRECTOR GENERAL 69-year-old white male who presented to the ED with shortness of breath related to swelling of his tongue. This was thought to be due to CHRISTI inhibitor side effect. He was short of breath and had compromised airway and was subsequently intubated in the ED and is now on IV sedation and ventilator support. Potassium is slightly low at 3.4. Liver function enzymes are slightly elevated. Admission chest x-ray is clear and admission EKG reveals normal sinus rhythm with first-degree AV block and left anterior hemiblock. He will be admitted to the ICU for further care including ventilator management, IV sedation management and further treatment Allergies Allergy/AdvReac Type Severity Reaction Status Date / Time dust mites Allergy Mild Uncoded 07/30/25 14:44 dogs Allergy Uncoded 07/30/25 14:44 milk weed AdvReac Congested Uncoded 07/30/25 14:44 Home Medications Medication Instructions Recorded Confirmed Type Medical Marijuana 1 applic PO UD PRN anxiety 11/23/23 08/20/25 History fluticasone propionate 50 2 spray intranasal DAILY #16 grams 01/04/25 08/20/25 Rx mcg/actuation nasal spray,suspension ipratropium bromide 21 mcg (0.03 2 spray intranasal TID PRN 01/04/25 08/20/25 Rx %) nasal spray postnasal drip #30 mL vitamin B complex 1 tab PO DAILY 01/25/25 08/20/25 History amlodipine 5 mg tablet 5 mg PO QAM #90 tabs 02/13/25 08/20/25 Rx hydrochlorothiazide 25 mg tablet 25 mg PO QAM #90 tabs 02/13/25 08/20/25 Rx mesalamine 1.2 gram tablet,delayed 2.4 g (2 x 1.2 gram) PO QAM #180 03/15/25 08/20/25 Rx release tabs hydroxyzine HCl 50 mg tablet 50 mg PO HS PRN anxiety #90 tabs 07/30/25 08/20/25 Rx lisinopril 40 mg tablet 40 mg PO DAILY 08/20/25 08/20/25 History rosuvastatin 10 mg tablet 10 mg PO DAILY 08/20/25 08/20/25 History Past Med/Surg History Problem List (Updated 08/20/25 @ 16:00 by Markus Paz MD) Angioedema due to angiotensin converting enzyme inhibitor (CHRISTI-I) Open wound of right foot Right foot ulcer Osteoarthritis of hips, bilateral Sacroiliitis Leg length discrepancy Spinal stenosis of lumbar region at multiple levels Vitamin B12 deficiency Homocystinemia Chronic rhinitis Ulcerative proctosigmoiditis Prediabetes (Chronic) no meds, monitored Hx of seborrheic keratosis Hx of colonic polyp Hypertension (Chronic) Dyslipidemia (Chronic) Seborrheic dermatitis NAFL (nonalcoholic fatty liver) (Chronic) Obstructive sleep apnea (Chronic) CPAP Morbid obesity (Chronic) Iron deficiency anemia (Chronic) Hepatic fibrosis (Chronic) Chronic scapular pain Medical History Ulcerative (chronic) proctosigmoiditis Pre-diabetes diet controlled, no meds Sleep apnea CPAP NAFLD (nonalcoholic fatty liver disease) HTN (hypertension) Dyslipidemia Chronic rhinitis Hx of iron deficiency anemia resolved Medical cannabis use Anxiety H/O: upper GI bleed (~2018) Surgical History Hx of colonoscopy with polypectomy S/P right knee arthroscopy S/P left knee arthroscopy History of esophagogastroduodenoscopy (EGD) History of tonsillectomy Family History Brother Myocardial infarction Colorectal cancer Hypertension Father Colorectal cancer Hypertension Sister Heart disease Mother Diabetes Cancer Hypertension Other No family history of adverse response to anesthesia Denies family history of Ovarian cancer Prostate cancer Breast cancer Social History Smoking Status: Never smoker Tobacco Type: Declines Age Started Using Tobacco: 22; Age Quit Using Tobacco: 34; packs per day: 1; Second Hand Exposure: No; Do You Dip or Chew Tobacco: No; Hx Alcohol Use: Yes Alcohol type: hard liquor Alcohol Intake Frequency: 4 or More x per/Week Hx Substance Use: Yes (ADVISED) Prescribed Medications: Marijuana Last Used Substance Other:: Daily use Med Marijuana Preferred Language: Italian Communication Ability: Effective Visual Impairment: No Limitations Hearing Ability: Normal Professor Of Music Required: No Beliefs That Will Affect Care: None marital status: / Current Living Situation: Alone current occupational status: retired Feels Safe at Home: Yes Childhood Exposure to Second-Hand Smoke: Yes Diet: regular caffeine: Yes during the past year weight has: increased > 10 lbs Dental Care, Regularly: No Physical Activity Frequency: 3-4 Times per Week Seatbelt Use: always Sunscreen Use: Yes Assistive Devices: Contacts, CPAP and Hearing Aid - Bilateral Review of Systems 2 Review of Systems: The patient is intubated and sedated and cannot answer any questions regarding review of systems at this time Physical Exam 2 Physical Exam: General-intubated and sedated. No fever HEENT-head atraumatic and normocephalic, pupils equal and reactive to light, extraocular muscles intact Neck-no lymphadenopathy or thyromegaly, trachea midline Chest-clear to auscultation anteriorly. No rales, wheezing or rhonchi Cardiac-regular rate and rhythm, normal S1 and S2 Abdomen-normal bowel sounds, no hepatosplenomegaly Extremities-no cyanosis, clubbing, or edema Neuro-cannot assess. Intubated and sedated Psych-cannot assess. Intubated and sedated Results & Data Results & Data Vital Signs (Past 12 Hours) Vital Signs Temp Pulse Pulse Resp BP BP Pulse Ox 08/20/25 15:45 58 L 18 96/60 L 97 08/20/25 15:30 59 L 18 87/55 L 96 08/20/25 15:20 58 L 18 98/59 L 96 08/20/25 15:00 110/56 L 08/20/25 15:00 110/56 L 08/20/25 15:00 67 18 96 08/20/25 14:57 66 18 96 08/20/25 14:55 97/58 L 08/20/25 14:55 97/58 L 08/20/25 14:55 97/58 L 08/20/25 14:55 97/58 L 08/20/25 14:55 97/58 L 08/20/25 14:54 68 18 96 08/20/25 14:51 68 18 96 08/20/25 14:50 90/55 L 08/20/25 14:50 90/55 L 08/20/25 14:50 90/55 L 08/20/25 14:50 90/55 L 08/20/25 14:50 90/55 L 08/20/25 14:48 67 18 96 08/20/25 14:45 104/64 08/20/25 14:45 104/64 08/20/25 14:45 104/64 08/20/25 14:45 104/64 08/20/25 14:45 104/64 08/20/25 14:45 69 18 96 08/20/25 14:42 68 18 96 08/20/25 14:40 98/60 L 08/20/25 14:40 98/60 L 08/20/25 14:40 98/60 L 08/20/25 14:40 98/60 L 08/20/25 14:40 98/60 L 08/20/25 14:39 69 18 96 08/20/25 14:36 71 19 96 08/20/25 14:35 116/63 08/20/25 14:35 116/63 08/20/25 14:35 116/63 08/20/25 14:35 116/63 08/20/25 14:35 116/63 08/20/25 14:33 70 19 96 08/20/25 14:30 101/66 08/20/25 14:30 101/66 08/20/25 14:30 101/66 08/20/25 14:30 101/66 08/20/25 14:30 101/66 08/20/25 14:30 72 20 96 08/20/25 14:27 71 19 96 08/20/25 14:25 123/80 08/20/25 14:25 123/80 08/20/25 14:25 123/80 08/20/25 14:25 123/80 08/20/25 14:25 123/80 08/20/25 14:24 76 21 96 08/20/25 14:05 85 18 209/129 H 98 08/20/25 14:00 106 H 18 217/140 H 94 08/20/25 14:00 88 18 99 08/20/25 13:57 80 19 144/83 H 98 08/20/25 13:50 90 20 98 08/20/25 13:47 37.1 C 96 H 20 138/78 98 08/20/25 13:44 96 H O2 Del Method O2 Flow Rate FiO2 08/20/25 15:45 Mechanical Vent 08/20/25 15:30 Mechanical Vent 08/20/25 15:20 Mechanical Vent 08/20/25 15:00 08/20/25 15:00 08/20/25 15:00 08/20/25 14:57 08/20/25 14:55 08/20/25 14:55 08/20/25 14:55 08/20/25 14:55 08/20/25 14:55 08/20/25 14:54 08/20/25 14:51 08/20/25 14:50 08/20/25 14:50 08/20/25 14:50 08/20/25 14:50 08/20/25 14:50 08/20/25 14:48 08/20/25 14:45 08/20/25 14:45 08/20/25 14:45 08/20/25 14:45 08/20/25 14:45 08/20/25 14:45 08/20/25 14:42 08/20/25 14:40 08/20/25 14:40 08/20/25 14:40 08/20/25 14:40 08/20/25 14:40 08/20/25 14:39 08/20/25 14:36 08/20/25 14:35 08/20/25 14:35 08/20/25 14:35 08/20/25 14:35 08/20/25 14:35 08/20/25 14:33 08/20/25 14:30 08/20/25 14:30 08/20/25 14:30 08/20/25 14:30 08/20/25 14:30 08/20/25 14:30 08/20/25 14:27 08/20/25 14:25 08/20/25 14:25 08/20/25 14:25 08/20/25 14:25 08/20/25 14:25 08/20/25 14:24 08/20/25 14:05 Mechanical Vent 08/20/25 14:00 Mechanical Vent 08/20/25 14:00 40 08/20/25 13:57 Oxymask 12 08/20/25 13:50 Room Air 08/20/25 13:47 Room Air 08/20/25 13:44 Laboratory Results 08/20/25 13:38 08/20/25 13:38 Code Status & VTE Plan Code Status Full code PG Care Time/CCT Total # of Minutes Spent Total Time Spent with Patient: Total time spent is greater than 50% in coordination of care (as documented) at patient's floor/unit and/or counseling patient: Coding Level of Care Code 16439 INT INP/OBS CARE 3/75MIN Diagnoses Angioedema due to angiotensin converting enzyme inhibitor (CHRISTI-I) T78.3XXA; T46.4X5A HTN (hypertension) I10 Dyslipidemia E78.5 NAFLD (nonalcoholic fatty liver disease) K76.0 Morbid obesity E66.01
[2025-08-20] MEDS: KETAMINE HCL INJ 50 MG/ML 10 ML VIAL IV ONE (16:05)
[2025-08-20] MEDS: KETAMINE HCL 10MG/ML SYR IV STA (16:06)
[2025-08-20] MEDS: KETAMINE HCL / NSS 500 MG/500 ML BAG IV SCH (16:07)
[2025-08-20] MEDS ORDERED: methylPREDNISolone 10 mg/mL (For Ped Dose < 7mg) IV SCH (17:26)
[2025-08-20] MEDS ORDERED: INFLUENZA VACC TS2025-26(65y+)/PF (IIV3) 0.5mL Syr IM ONE (17:42)
[2025-08-20] MEDS: MIDAZOLAM HCL 5 MG/ML 2ML VIAL ONE (17:54)
--- NOTE | 2025-08-20 17:56 | Critical Care Consultation ---
Date of Consultation August 20, 2025 Assessment & Plan (1) Angioedema due to angiotensin converting enzyme inhibitor (CHRISTI-I): (2) Required emergency intubation: (3) Hypertension: (4) Alcohol use disorder: (5) Obstructive sleep apnea: Plan Patient is a 69-year-old male who presented to the hospital for evaluation of swelling of his tongue. Has significant angioedema of the tongue requiring intubation for airway protection in the emergency department. Admitted to the [facility] for further care. Reason Critically Ill: Angioedema of the tongue Inability to protect airway and need for emergent intubation Hypertension on CHRISTI inhibitor Obstructive sleep apnea with home CPAP Obesity Alcohol use disorder Neuro: Sedated, currently requiring ketamine, fentanyl and propofol for sedation. History of alcohol use disorder. Will give thiamine. Cardiac: Normotensive. No evidence of shock at this time. Not requiring pressors. Respiratory: Emergently intubated in the ER due to angioedema and inability to protect airway. Size 7.5 ET tube Will obtain tryptase, C1 esterase inhibitor and function, C1q, C4. Continue Benadryl, methylprednisolone, will add famotidine. Patient received TXA. Given that he is intubated we will hold off on FFP for now. Hold CHRISTI inhibitor. Continue mechanical ventilation. 2 point restraints. Imperative that patient does not lose airway. Patient would likely require extubation to CPAP given his LYNN history. GI: OG tube in place. Famotidine. Hold tube feeds for now, if remains on ventilation will initiate tomorrow. RENAL/LYTES: Renal function at baseline. Mild hypokalemia. Monitor replace electrolytes as indicated. : Cook catheter in place. Monitor strict I's and O's. ENDO: Mildly hyperglycemic. Monitor glucose every 6. Will likely require sliding scale insulin. HEME: Normal cell counts. Monitor CBC in AM. ID: No obvious infectious etiology at this time. No need for antibiotics. Feeding: NPO Fluids: None Analgesia: Ketamine, fentanyl, propofol Activity: Bedrest Thromboprophylaxis: Lovenox Ulcer prophylaxis: Famotidine Glycemic control: Likely will need SSI Bowels: None at this time Indwelling catheters: Cook, OG, ET, PIV Antibiotics: None Plan: Patient will remain in the ICU. Continue mechanical ventilation. Keep sedated. 2 point restraints. Imperative that patient does not lose airway. Continue steroids, Benadryl, famotidine. I have personally spent 55 minutes of critical care time in the direct management of this patient. This is a life/limb threatening event. This includes time spent evaluating patient, direct bedside care, chart review, placing orders, interpretation of diagnostic studies, discussion with consultants, patient, and family members, as well as other required patient management activities. This time is exclusive of all separately billable procedures, and teaching time and separate from and in addition to any other critical care service time. History of Present Illness Reason for Consultation: Angioedema, respiratory failure Requesting Physician: Markus Paz MD Attending Physician: Markus Paz MD History of Present Illness Patient is a 69-year-old male who presented to the emergency department due to acute onset of swelling of his tongue. The patient endorsed that at 1130 this morning he noticed that his tongue was swelling. He had never had an episode like this before and had not been started on any new medications. He does have hypertension and is on an CHRISTI inhibitor but has been on this for many years. On presentation to the emergency department the patient was not hypoxic. X-ray was clear. On evaluation the patient had significant swelling of his tongue, he could not swallow secretions. He was treated with TXA, Benadryl, Solu-Medrol. Due to continued swelling and fear of complete loss of airway the decision was made to electively intubate. He was intubated in the emergency department with a size 7.5 ET tube which was secured at 26 at the lip. The patient subsequently was difficult to sedate, Precedex was attempted however he became bradycardic. He was started on a ketamine infusion, fentanyl and propofol. Reportedly has a history of alcohol use when I evaluate the patient he is sedated and calm in bed. 2-point restraints are in place. There is significant edema of the tongue. No swelling of the lips or eyes. No rashes appreciated on exam. Lungs are clear. Saturating well. Allergies Allergy/AdvReac Type Severity Reaction Status Date / Time dust mites Allergy Mild Uncoded 07/30/25 14:44 dogs Allergy Uncoded 07/30/25 14:44 milk weed AdvReac Congested Uncoded 07/30/25 14:44 Home Medications Medication Instructions Recorded Confirmed Type Medical Marijuana 1 applic PO UD PRN anxiety 11/23/23 08/20/25 History fluticasone propionate 50 2 spray intranasal DAILY #16 grams 01/04/25 08/20/25 Rx mcg/actuation nasal spray,suspension ipratropium bromide 21 mcg (0.03 2 spray intranasal TID PRN 01/04/25 08/20/25 Rx %) nasal spray postnasal drip #30 mL vitamin B complex 1 tab PO DAILY 01/25/25 08/20/25 History amlodipine 5 mg tablet 5 mg PO QAM #90 tabs 02/13/25 08/20/25 Rx hydrochlorothiazide 25 mg tablet 25 mg PO QAM #90 tabs 02/13/25 08/20/25 Rx mesalamine 1.2 gram tablet,delayed 2.4 g (2 x 1.2 gram) PO QAM #180 03/15/25 08/20/25 Rx release tabs hydroxyzine HCl 50 mg tablet 50 mg PO HS PRN anxiety #90 tabs 07/30/25 08/20/25 Rx lisinopril 40 mg tablet 40 mg PO DAILY 08/20/25 08/20/25 History rosuvastatin 10 mg tablet 10 mg PO DAILY 08/20/25 08/20/25 History Patient History Medical History Ulcerative (chronic) proctosigmoiditis Pre-diabetes diet controlled, no meds Sleep apnea CPAP NAFLD (nonalcoholic fatty liver disease) HTN (hypertension) Dyslipidemia Chronic rhinitis Hx of iron deficiency anemia resolved Medical cannabis use Anxiety H/O: upper GI bleed (~2017) Surgical History Hx of colonoscopy with polypectomy S/P right knee arthroscopy S/P left knee arthroscopy History of esophagogastroduodenoscopy (EGD) History of tonsillectomy Family History Brother Myocardial infarction Colorectal cancer Hypertension Father Colorectal cancer Hypertension Sister Heart disease Mother Diabetes Cancer Hypertension Other No family history of adverse response to anesthesia Denies family history of Ovarian cancer Prostate cancer Breast cancer Social History Smoking Status: Unknown if ever smoked Tobacco Type: Declines Age Started Using Tobacco: 22; Age Quit Using Tobacco: 34; packs per day: 1; Second Hand Exposure: No; Do You Dip or Chew Tobacco: No; Hx Alcohol Use: Yes Alcohol type: hard liquor Alcohol Intake Frequency: 4 or More x per/Week Hx Substance Use: Yes Prescribed Medications: Marijuana Last Used Substance Other:: MARIJUANA CARD PER CHART Preferred Language: Greenlandic Communication Ability: Effective Visual Impairment: No Limitations Hearing Ability: Normal Flying Teacher Required: No Beliefs That Will Affect Care: None marital status: / Current Living Situation: Alone current occupational status: retired Feels Safe at Home: Yes Childhood Exposure to Second-Hand Smoke: Yes Diet: regular caffeine: Yes during the past year weight has: increased > 10 lbs Dental Care, Regularly: No Physical Activity Frequency: 3-4 Times per Week Seatbelt Use: always Sunscreen Use: Yes Assistive Devices: Contacts, CPAP and Hearing Aid - Bilateral Review of Systems Review of Systems: Not able to obtain, patient intubated and sedated. Physical Exam Physical Exam: Physical examination: General: Obese, sedated, intubated, make synchronous with ventilator. HEENT: Significant swelling of the tongue. No significant edema otherwise. Skin: Warm and dry. No rashes appreciated. No significant edema of mucous membranes outside of the tongue. Cardiovascular: Heart is a regular rate and rhythm, no murmurs appreciated on my exam. No significant lower extremity edema. Lungs: Clear bilaterally, no wheezing appreciated. On mechanical ventilation. Abdomen: Obese. Nontender to palpation. No masses appreciated. No bruising. Musculoskeletal: Normal muscle mass and tone. No gross joint deformity abnormalities. No effusions appreciated. Neurologic: Sedated. Was waking up prior to increase in sedation, moving all extremities. Results & Data Results & Data Vital Signs (Past 12 Hours) Vital Signs Temp Pulse Pulse Resp BP BP Pulse Ox 08/20/25 17:36 36.2 C L 49 L 18 123/77 97 08/20/25 16:45 52 L 16 115/72 97 08/20/25 16:30 54 L 18 110/66 98 08/20/25 16:15 54 L 18 102/66 98 08/20/25 15:45 58 L 18 96/60 L 97 08/20/25 15:30 59 L 18 87/55 L 96 08/20/25 15:20 58 L 18 98/59 L 96 08/20/25 15:00 110/56 L 08/20/25 15:00 110/56 L 08/20/25 15:00 67 18 96 08/20/25 14:57 66 18 96 08/20/25 14:55 97/58 L 08/20/25 14:55 97/58 L 08/20/25 14:55 97/58 L 08/20/25 14:55 97/58 L 08/20/25 14:55 97/58 L 08/20/25 14:54 68 18 96 08/20/25 14:51 68 18 96 08/20/25 14:50 90/55 L 08/20/25 14:50 90/55 L 08/20/25 14:50 90/55 L 08/20/25 14:50 90/55 L 08/20/25 14:50 90/55 L 08/20/25 14:48 67 18 96 08/20/25 14:45 104/64 08/20/25 14:45 104/64 08/20/25 14:45 104/64 08/20/25 14:45 104/64 08/20/25 14:45 104/64 08/20/25 14:45 69 18 96 08/20/25 14:42 68 18 96 08/20/25 14:40 98/60 L 08/20/25 14:40 98/60 L 08/20/25 14:40 98/60 L 08/20/25 14:40 98/60 L 08/20/25 14:40 98/60 L 08/20/25 14:39 69 18 96 08/20/25 14:36 71 19 96 08/20/25 14:35 116/63 08/20/25 14:35 116/63 08/20/25 14:35 116/63 08/20/25 14:35 116/63 08/20/25 14:35 116/63 08/20/25 14:33 70 19 96 08/20/25 14:30 101/66 08/20/25 14:30 101/66 08/20/25 14:30 101/66 08/20/25 14:30 101/66 08/20/25 14:30 101/66 08/20/25 14:30 72 20 96 08/20/25 14:27 71 19 96 08/20/25 14:25 123/80 08/20/25 14:25 123/80 08/20/25 14:25 123/80 08/20/25 14:25 123/80 08/20/25 14:25 123/80 08/20/25 14:24 76 21 96 08/20/25 14:05 85 18 209/129 H 98 08/20/25 14:00 106 H 18 217/140 H 94 08/20/25 14:00 88 18 99 08/20/25 13:57 80 19 144/83 H 98 08/20/25 13:50 90 20 98 08/20/25 13:47 37.1 C 96 H 20 138/78 98 08/20/25 13:44 96 H O2 Del Method O2 Flow Rate FiO2 08/20/25 17:36 Mechanical Vent 50 08/20/25 16:45 Mechanical Vent 08/20/25 16:30 Mechanical Vent 08/20/25 16:15 Mechanical Vent 08/20/25 15:45 Mechanical Vent 08/20/25 15:30 Mechanical Vent 08/20/25 15:20 Mechanical Vent 08/20/25 15:00 08/20/25 15:00 08/20/25 15:00 08/20/25 14:57 08/20/25 14:55 08/20/25 14:55 08/20/25 14:55 08/20/25 14:55 08/20/25 14:55 08/20/25 14:54 08/20/25 14:51 08/20/25 14:50 08/20/25 14:50 08/20/25 14:50 08/20/25 14:50 08/20/25 14:50 08/20/25 14:48 08/20/25 14:45 08/20/25 14:45 08/20/25 14:45 08/20/25 14:45 08/20/25 14:45 08/20/25 14:45 08/20/25 14:42 08/20/25 14:40 08/20/25 14:40 08/20/25 14:40 08/20/25 14:40 08/20/25 14:40 08/20/25 14:39 08/20/25 14:36 08/20/25 14:35 08/20/25 14:35 08/20/25 14:35 08/20/25 14:35 08/20/25 14:35 08/20/25 14:33 08/20/25 14:30 08/20/25 14:30 08/20/25 14:30 08/20/25 14:30 08/20/25 14:30 08/20/25 14:30 08/20/25 14:27 08/20/25 14:25 08/20/25 14:25 08/20/25 14:25 08/20/25 14:25 08/20/25 14:25 08/20/25 14:24 08/20/25 14:05 Mechanical Vent 08/20/25 14:00 Mechanical Vent 08/20/25 14:00 40 08/20/25 13:57 Oxymask 08/20/25 13:50 Room Air 08/20/25 13:47 Room Air 08/20/25 13:44 Laboratory Results Labs reviewed. No significant leukocytosis. Mild hyponatremia and hypokalemia. Mild hyperglycemia. Liver enzymes are up slightly. Diagnostic Findings Chest x-ray was reviewed, ET tube is above the shaan. No obvious infiltrates however there is some atelectasis in the bases. Mediastinum appears slightly widened compared to previous films. Hypoinflation. Coding Level of Care Code 25955 CRITICAL CARE 1ST 30-74M Diagnoses Angioedema due to angiotensin converting enzyme inhibitor (CHRISTI-I) T78.3XXA; T46.4X5A Required emergency intubation Z98.890 Hypertension I10 Alcohol use disorder F10.90 Obstructive sleep apnea G47.33
[2025-08-20] MEDS: NSS + 20MEQ KCL 20 MEQ/1,000 ML BAG IV SCH (18:00)
[2025-08-20] MEDS: THIAMINE HCL 200 MG in SODIUM CHLORIDE 0.9% 50 ML IV SCH (18:14)
[2025-08-20] MEDS: FAMOTIDINE 20MG IV PUSH 20 MG/5 ML SYR IV SCH (18:30)
[2025-08-20 19:02] LABS: Appearance Urine Turbid (Clear); Bacteria Urine Automated 1+ (None Seen); Epithelial Cell Urine Auto 0-2 /hpf (0-2); Glucose Urine UA Negative (Negative); WBC Urine Automated 0-5 /hpf (0-5)
[2025-08-20 19:27] LABS: INR 1.1 (0.9-1.1); Prothrombin Time 11.6 Seconds (9.0-12.0)
[2025-08-20] MEDS: diphenhydrAMINE 50 MG/ML VIAL IV SCH (20:21)
[2025-08-20 22:33] LABS: iSTAT Art Bld Gas Base Excess -2.0 mmol/L (-9-1.8); iSTAT Art Bld Gas pCO2 Correct 30 mmHg (35-46); iSTAT Art Bld Gas pH Corrected 7.466 (7.35-7.45); iSTAT Arterial Blood Gas pO2 C 115
[2025-08-21 04:51] LABS: Hematocrit (blood only) 36.2 % (42.0-52.0); Hemoglobin 12.5 g/dL (14.0-18.0); Immature Granulocytes # (auto) 0.04 K/uL (0.01-0.20); Immature Granulocytes % (auto) 0.7 %; Mean Corpuscular Hemoglobin 31.9 pg (25.0-34.0); Mean Corpuscular Volume 92.3 fL (80.0-100.0); Platelet Count 195 K/uL (130-400); RDW Standard Deviation 43.8 fL (36.4-46.3); Red Blood Count 3.92 M/uL (4.70-6.10); White Blood Count 6.02 K/ul (4.8-10.8)
[2025-08-21 05:17] LABS: Alanine Aminotransferase 50.0 U/L (7-52); Albumin Globulin Ratio 1.2 (0.9-2); Albumin Level 3.7 gm/dl (3.4-5.0); Alkaline Phosphatase 63.0 U/L (34-104); Anion Gap 10.0 (3-11); Bilirubin,Total 0.9 mg/dl (0.2-1.0); Blood Urea Nitrogen 24.0 mg/dl (6-23); Calcium 8.7 mg/dl (8.6-10.3); Carbon Dioxide 22.0 mmol/L (21-32); Chloride 102.0 mmol/L (98-107); Creatinine Clr Calc Pharmacy 87.8 ml/min; Globulin 3.1 gm/dl (2.5-4.0); Glucose 174.0 mg/dl (70-99(Fasting)); Magnesium 1.5 mg/dl (1.7-2.4); Potassium 4.3 mmol/L (3.5-5.1); Sodium 134.0 mmol/L (136-145); Total Protein 6.8 gm/dl (6.0-8.3)
[2025-08-21] MEDS: MAGNESIUM SULFATE / D5W 1 GM/100 ML BAG IV SCH (05:40)
--- NOTE | 2025-08-21 07:20 | Critical Care Progress Note ---
Date of Service August 21, 2025 Assessment & Plan (1) Angioedema due to angiotensin converting enzyme inhibitor (CHRISTI-I): (2) Required emergency intubation: (3) Hypertension: (4) Alcohol use disorder: (5) Obstructive sleep apnea: Plan Patient is a 69-year-old male who presented to the hospital for evaluation of swelling of his tongue. Has significant angioedema of the tongue requiring intubation for airway protection in the emergency department. Admitted to the ICU for further care. Reason Critically Ill: Angioedema of the tongue Inability to protect airway and need for emergent intubation Hypertension on CHRISTI inhibitor Obstructive sleep apnea with home CPAP Obesity Alcohol use disorder Neuro: Sedated, currently requiring ketamine, fentanyl and propofol for sedation. History of alcohol use disorder. Continue thiamine. Upon extubation the patient will likely require alcohol withdrawal treatment, propofol is adequate for now. Cardiac: Normotensive. No evidence of shock at this time. Not requiring pressors. Respiratory: Emergently intubated in the ER due to angioedema and inability to protect airway. Size 7.5 ET tube We have sent tryptase, C1 esterase inhibitor and function, C1q, C4. Results are pending. Continue Benadryl, methylprednisolone, and famotidine. Patient received TXA. Given that he is intubated we will hold off on FFP for now. Hold CHRISTI inhibitor. Continue mechanical ventilation. Tongue is still significantly swollen. Will get CT soft tissue neck today to rule out infectious etiology. 2 point restraints. Imperative that patient does not lose airway. Patient would likely require extubation to CPAP given his LYNN history. GI: OG tube in place. Famotidine. Given that patient will not be extubated we will initiate tube feeds today. Will initiate bowel regimen given that patient is on fentanyl infusion. Will start docusate, senna and MiraLAX. RENAL/LYTES: Renal function at baseline. Monitor replace electrolytes as indicated. : Cook catheter in place. Monitor strict I's and O's. ENDO: Mildly hyperglycemic. Monitor glucose every 6. Not requiring insulin yet. Will check triglycerides in the morning given the propofol infusion. HEME: Normal cell counts. Monitor CBC in AM. ID: No obvious infectious etiology at this time. No need for antibiotics. Getting CT soft tissue neck. Feeding: Initiate tube feeds. Fluids: None Analgesia: Ketamine, fentanyl, propofol Activity: Bedrest Thromboprophylaxis: Lovenox Ulcer prophylaxis: Famotidine Glycemic control: Blood glucose acceptable. Not requiring insulin at this time. Bowels: Will initiate bowel regimen, docusate, senna and MiraLAX Indwelling catheters: Cook, OG, ET, PIV Antibiotics: None Plan: Patient will remain in the ICU. Will continue mechanical ventilation today. His tongue is still extremely swollen. Continue steroids, Benadryl and famotidine. Complement and tryptase are pending. We will obtain CT soft tissue of the neck. Will initiate nutrition and bowel regimen today as he remains on the ventilator. I have personally spent 45 minutes of critical care time in the direct management of this patient. This is a life/limb threatening event. This includes time spent evaluating patient, direct bedside care, chart review, placing orders, interpretation of diagnostic studies, discussion with consultants, patient, and family members, as well as other required patient management activities. This time is exclusive of all separately billable procedures, and teaching time and separate from and in addition to any other critical care service time. Admission and Anticipated Discharge Date Admission Date: August 20, 2025 Subjective Past 24-hour events: Admitted from the emergency department yesterday. Presented with angioedema, intubated for airway protection due to tongue swelling. Difficult to sedate. Combination of ketamine with propofol and fentanyl has seemed to help. No fevers overnight. No significant leukocytosis. Attempt have been made to reach family however there has been no success. Rounding: Patient is comfortable on ventilator. Wakes up easily. patient did not follow commands and open his mouth so I could examine his tongue today. It is protruding less from the mouth but still look swollen. We sedated him heavily and gave him a one-time dose of rocuronium. Was able to examine his mouth at that time, his stomach is still significantly swollen, I do not think it be safe to extubate at this time. Will also get a CT soft tissue of the neck. Oral secretions have a foul odor. Intake: 2529 mL Output: 75 mL Net: +1804 mL Mechanical ventilation: AC 18/500/8/50% -> decreased to 40%. Feeding: NPO IV infusions: Fentanyl, propofol, ketamine Indwelling catheters: ET tube, Cook catheter, peripheral IV Laboratory: CBC: WBC 6.02, hemoglobin 12.5, platelet 195 Chemistry: Sodium 134, potassium 4.0, chloride 102, bicarb 22, BUN 24, creatinine 1.12, glucose 174, lactate 1.2, calcium 8.7, magnesium 1.5, AST 55, ALT 50 AB.4 02/26/ Review of Systems Review of Systems: Not able to obtain, patient intubated and sedated. Physical Exam Physical Exam: Physical examination: General: Obese, sedated, intubated, make synchronous with ventilator. HEENT: Significant swelling of the tongue. No significant edema otherwise. -Oral exam shows that the tongue is still significantly swollen. Slightly less than yesterday. Skin: Warm and dry. No rashes appreciated. No significant edema of mucous membranes outside of the tongue. Cardiovascular: Heart is a regular rate and rhythm, no murmurs appreciated on my exam. No significant lower extremity edema. Lungs: Clear bilaterally, no wheezing appreciated. On mechanical ventilation. Abdomen: Obese. Nontender to palpation. No masses appreciated. No bruising. Musculoskeletal: Normal muscle mass and tone. No gross joint deformity abnormalities. No effusions appreciated. Neurologic: Sedated. Was waking up prior to increase in sedation, moving all extremities. Results & Data Results & Data Vital Signs (Past 12 Hours) Vital Signs Temp Pulse Resp BP Pulse Ox O2 Del Method FiO2 08/21/25 06:30 46 L 18 99/60 L 96 Mechanical Vent 50 08/21/25 06:00 47 L 18 98/61 L 96 Mechanical Vent 50 08/21/25 05:30 47 L 18 103/59 L 96 Mechanical Vent 50 08/21/25 05:00 46 L 18 101/58 L 96 Mechanical Vent 50 08/21/25 04:30 47 L 18 92/55 L 96 Mechanical Vent 50 08/21/25 04:00 50 08/21/25 04:00 37 C 47 L 18 99/58 L 97 Mechanical Vent 50 08/21/25 03:30 98/57 L 08/21/25 03:30 47 L 18 94 50 08/21/25 03:30 47 L 18 98/57 L 98 Mechanical Vent 50 08/21/25 03:00 50 L 18 91/53 L 96 Mechanical Vent 50 08/21/25 02:30 48 L 18 107/64 95 Mechanical Vent 50 08/21/25 02:00 47 L 18 100/62 95 Mechanical Vent 50 08/21/25 01:30 47 L 18 98/59 L 97 Mechanical Vent 50 08/21/25 01:00 49 L 18 102/60 97 Mechanical Vent 50 08/21/25 00:30 48 L 18 102/60 95 Mechanical Vent 50 08/21/25 00:00 36.9 C 49 L 18 101/61 97 Mechanical Vent 50 08/21/25 00:00 50 08/20/25 23:30 50 L 18 104/65 97 Mechanical Vent 50 08/20/25 23:00 49 L 18 105/63 95 Mechanical Vent 50 08/20/25 22:30 51 L 18 101/60 95 Mechanical Vent 50 08/20/25 22:25 50 L 18 97 50 08/20/25 22:00 50 L 18 106/65 95 Mechanical Vent 50 08/20/25 21:30 49 L 18 99/63 L 95 Mechanical Vent 50 08/20/25 21:00 51 L 18 92/55 L 97 Mechanical Vent 50 08/20/25 20:30 51 L 18 108/66 96 Mechanical Vent 50 08/20/25 20:00 Mechanical Vent 50 08/20/25 20:00 50 08/20/25 20:00 36.8 C 53 L 18 112/70 97 Mechanical Vent 50 08/20/25 19:30 53 L 18 97 50 08/20/25 19:30 52 L 18 103/63 96 Mechanical Vent 50 Coding Level of Care Code 33055 CRITICAL CARE 1ST 30-74M Diagnoses Angioedema due to angiotensin converting enzyme inhibitor (CHRISTI-I) T78.3XXA; T46.4X5A Required emergency intubation Z98.890 Hypertension I10 Alcohol use disorder F10.90 Obstructive sleep apnea G47.33
[2025-08-21] MEDS: ENOXAPARIN INJ 40 MG/0.4 ML SYR SQ SCH (09:17)
[2025-08-21] MEDS: ROCURONIUM BROMIDE 10 MG/ML 5 ML VIAL IV PRN (11:04)
--- NOTE | 2025-08-21 12:10 | Hospitalist Progress Note ---
Date of Service August 21, 2025 Assessment & Plan (1) Angioedema due to angiotensin converting enzyme inhibitor (CHIRSTI-I): Plan: Lisinopril has been stopped. The patient remained intubated. Continue intravenous Solu-Medrol and intravenous Benadryl. Continue sedation. (2) HTN (hypertension): Plan: Currently stable. Will use intravenous medications as needed to control blood pressure (3) Dyslipidemia: Plan: Currently stable. He takes rosuvastatin (4) NAFLD (nonalcoholic fatty liver disease): Plan: LFTs are mildly elevated and will be followed (5) Morbid obesity: Plan: BMI greater than 40. Significant weight loss recommended (6) Hypomagnesemia: Plan: Parenteral replacement. Serial labs Plan Anticipate eventual discharge back to home off lisinopril. Admission and Anticipated Discharge Date Admission Date: August 20, 2025 Subjective The patient remains intubated and sedated. He is on ketamine, propofol, fentanyl drips. Critical care stated that the lingual angioedema persists and they will not be extubating him today. Possibly tomorrow, August 22. Magnesium replacement underway for slightly low level of 1.5. Review of Systems 2 Review of Systems: The patient is intubated and sedated and cannot answer any questions regarding review of systems at this time Physical Exam 2 Physical Exam: General-intubated and sedated. No fever HEENT-head atraumatic and normocephalic, pupils equal and reactive to light, extraocular muscles intact Neck-no lymphadenopathy or thyromegaly, trachea midline Chest-clear to auscultation anteriorly. No rales, wheezing or rhonchi Cardiac-regular rate and rhythm, normal S1 and S2 Abdomen-normal bowel sounds, no hepatosplenomegaly Extremities-no cyanosis, clubbing, or edema Neuro-cannot assess. Intubated and sedated Psych-cannot assess. Intubated and sedated Results & Data Results & Data Vital Signs (Past 12 Hours) Vital Signs Temp Pulse Resp BP Pulse Ox O2 Del Method FiO2 08/21/25 10:47 47 L 18 95 40 08/21/25 08:29 Mechanical Vent 40 08/21/25 07:30 52 L 18 105/53 L 91 08/21/25 07:18 46 L 19 96 50 08/21/25 07:00 45 L 18 90/61 L 93 08/21/25 06:30 46 L 18 99/60 L 96 Mechanical Vent 50 08/21/25 06:00 47 L 18 98/61 L 96 Mechanical Vent 50 08/21/25 05:30 47 L 18 103/59 L 96 Mechanical Vent 50 08/21/25 05:00 46 L 18 101/58 L 96 Mechanical Vent 50 08/21/25 04:30 47 L 18 92/55 L 96 Mechanical Vent 50 08/21/25 04:00 50 08/21/25 04:00 37 C 47 L 18 99/58 L 97 Mechanical Vent 50 08/21/25 03:30 98/57 L 08/21/25 03:30 47 L 18 94 50 08/21/25 03:30 47 L 18 98/57 L 98 Mechanical Vent 50 08/21/25 03:00 50 L 18 91/53 L 96 Mechanical Vent 50 08/21/25 02:30 48 L 18 107/64 95 Mechanical Vent 50 08/21/25 02:00 47 L 18 100/62 95 Mechanical Vent 50 08/21/25 01:30 47 L 18 98/59 L 97 Mechanical Vent 50 08/21/25 01:00 49 L 18 102/60 97 Mechanical Vent 50 08/21/25 00:30 48 L 18 102/60 95 Mechanical Vent 50 Laboratory Results 08/21/25 04:08 08/21/25 04:08 PG Care Time/CCT Total # of Minutes Spent Total Time Spent with Patient: Total time spent is greater than 50% in coordination of care (as documented) at patient's floor/unit and/or counseling patient: Coding Level of Care Code 76318 SUB INP/OBS CARE 2/35MIN Diagnoses Angioedema due to angiotensin converting enzyme inhibitor (CHRISTI-I) T78.3XXA; T46.4X5A HTN (hypertension) I10 Dyslipidemia E78.5 NAFLD (nonalcoholic fatty liver disease) K76.0 Morbid obesity E66.01 Hypomagnesemia E83.42
[2025-08-21] MEDS ORDERED: PEPTAMEN INTENSE VHP 1.0 CAL 1,000 ML BAG OG SCH (13:30)
[2025-08-21] MEDS: POLYETHYLENE (MIRALAX) 17 GM PACK PO SCH (14:24)
[2025-08-21] MEDS: SENNOSIDES 8.8 MG/5 ML UDC PO SCH (14:24)
[2025-08-21] MEDS: DOCUSATE SODIUM SYRUP 100 MG/10 ML UDC PO SCH (14:24)
[2025-08-21] MEDS: TUBE FEEDING WATER FLUSH OG SCH (14:25)
[2025-08-21] MEDS: OPTIRAY 320 100ml IV ONE (15:33)
--- NOTE | 2025-08-21 16:16 | CT Scan Report ---
CT SCAN OF THE NECK WITH IV CONTRAST CLINICAL HISTORY: Tongue swelling. Angioedema. Assess for abscess. COMPARISON STUDY: No priors TECHNIQUE: Following the IV administration of 94 cc of Optiray 320, CT scan of the soft tissues of th e neck was performed from the skull base to the upper chest. Images are reviewed in the axial, sagitt al, and coronal planes. IV contrast was administered without complication. A dose lowering techniqu e was utilized adhering to the principles of ALARA. CT DOSE: 689.78 mGy.cm FINDINGS: Pharynx: Endotracheal and enteric tubes are in place. There are layering secretions noted in the phar ynx. No peritonsillar fluid collection is seen. There is no evidence of mass lesion. The vocal cords are symmetric. The right parapharyngeal fat is maintained. There is nonspecific infiltration of the l eft parapharyngeal fat. The prevertebral/retropharyngeal soft tissues are within normal limits. Lymphadenopathy: No cervical lymphadenopathy is seen Thyroid: Normal in size and attenuation. Salivary glands: The parotid and submandibular glands are within normal limits. Brain parenchyma: The visualized brain parenchyma at the skull base is normal in appearance. Vascular structures: The carotid arteries and jugular veins are patent bilaterally. Atherosclerotic p laque is seen in the carotid bulbs. Skeletal structures: The skeletal structures are osteopenic. Imaged portions of the calvarium at the skull base are within normal limits. The cervical spine appears intact noting multilevel spondylosis. Orbits: The bony orbits are intact. Orbital contents are normal as imaged. Sinuses and mastoids: There is oyfl-dc-dcponobd mucosal thickening within the maxillary and ethmoid s inuses. Trace mucosal thickening is seen within the right sphenoid sinus. There is a small left masto id effusion. The right mastoid air cells are well pneumatized. Lung apices: Endotracheal tube is in place and terminates above the shaan. There are secretions in t he upper trachea. Visualized apical lung parenchyma is clear noting dependent atelectasis. An enteric tube is partially visualized. IMPRESSION: 1. Endotracheal and enteric tubes are in place. 2. There are layering secretions within the pharynx and upper trachea. 3. No fluid collection is seen to suggest abscess. 4. There is nonspecific infiltration of the left parapharyngeal fat. Correlate clinically. 5. Additional findings as above. ACT 112: Negative or not required by law. Electronically signed by: Javon Parmar M.D. 08/21/2025 4:14 PM
[2025-08-21] MEDS: MIDAZOLAM HCL 5 MG/ML 2ML VIAL IV STA (16:52)
[2025-08-22 05:17] LABS: Hematocrit (blood only) 37.1 % (42.0-52.0); Hemoglobin 12.7 g/dL (14.0-18.0); Immature Granulocytes # (auto) 0.11 K/uL (0.01-0.20); Immature Granulocytes % (auto) 1.1 %; Mean Corpuscular Hemoglobin 32.4 pg (25.0-34.0); Mean Corpuscular Volume 94.6 fL (80.0-100.0); Platelet Count 210 K/uL (130-400); RDW Standard Deviation 45.8 fL (36.4-46.3); Red Blood Count 3.92 M/uL (4.70-6.10); White Blood Count 10.39 K/ul (4.8-10.8)
[2025-08-22 06:01] LABS: Alanine Aminotransferase 43.0 U/L (7-52); Albumin Globulin Ratio 1.1 (0.9-2); Albumin Level 3.6 gm/dl (3.4-5.0); Alkaline Phosphatase 67.0 U/L (34-104); Anion Gap 9.0 (3-11); Bilirubin,Total 0.7 mg/dl (0.2-1.0); Blood Urea Nitrogen 29.0 mg/dl (6-23); Calcium 8.9 mg/dl (8.6-10.3); Carbon Dioxide 23.0 mmol/L (21-32); Chloride 102.0 mmol/L (98-107); Creatinine Clr Calc Pharmacy 80.6 ml/min; Globulin 3.2 gm/dl (2.5-4.0); Glucose 182.0 mg/dl (70-99(Fasting)); Magnesium 2.2 mg/dl (1.7-2.4); Potassium 3.9 mmol/L (3.5-5.1); Sodium 134.0 mmol/L (136-145); Total Protein 6.8 gm/dl (6.0-8.3); Triglycerides 119.0 mg/dl (0-150)
[2025-08-22] MEDS: FUROSEMIDE 40 MG/4 ML VIAL IV ONE (08:16)
--- NOTE | 2025-08-22 08:23 | XRay Report ---
EXAM: XR chest 1V portable CLINICAL HISTORY: f/u TECHNIQUE: An X-ray image of the chest is obtained in AP portable projection. COMPARISON: 08/20/2025. FINDINGS: Lines: An ET tube is seen, with its tip approximately 4.6 cm above the shaan, and appears well-positioned. It was previously seen at around 5.5 cm above the shaan; the discrepancy is likely positional. Please correlate clinically. An NG tube is seen with its tip below the diaphragm; appears well-positioned. Unchanged. Pulmonary Parenchyma: Increased interstitial markings bilaterally, with associated peribronchial cuffing, likely due to venous congestion. Please correlate clinically. Unchanged. Left mid to lower zone linear atelectatic band. Unchanged. No evidence of consolidation. No evidence of pleural effusion or pleural thickening. Heart and Mediastinum: Enlarged cardiac silhouette. No mediastinal widening or masses. No hilar or mediastinal lymphadenopathy. Bony Thorax: The bony thorax appears intact without fractures or deformities. Soft Tissues: Soft tissues overlying the chest wall are unremarkable. IMPRESSION: 1- Well-placed ET tube, shows an interval decrease in its distance from the shaan, likely positional. Please correlate clinically. 2- Cardiomegaly with changes of venous congestion. Please correlate clinically. Unchanged. 3- Left mid to lower zone linear atelectatic band. Unchanged. 4- Well placed NG tube. Electronically signed by Ab Pal 08-22-2025 08:22 AM
--- NOTE | 2025-08-22 10:22 | Critical Care Progress Note ---
Date of Service August 22, 2025 Assessment & Plan (1) Angioedema due to angiotensin converting enzyme inhibitor (CHRISTI-I): (2) Required emergency intubation: (3) Hypertension: (4) Alcohol use disorder: (5) Obstructive sleep apnea: Plan Patient is a 69-year-old male who presented to the hospital for evaluation of swelling of his tongue. Has significant angioedema of the tongue requiring intubation for airway protection in the emergency department. Admitted to the ICU for further care. Reason Critically Ill: Angioedema of the tongue Inability to protect airway and need for emergent intubation extubated 08/22/2025 Hypertension on CHRISTI inhibitor Obstructive sleep apnea without CPAP (patient denies using CPAP at night) Obesity Alcohol use disorder Neuro: Sedation is off. Mentation has improved. Following commands. Nonfocal neurologic exam. History of alcohol use disorder. Continue thiamine. Will order alcohol withdrawal protocol, monitor for evidence of withdrawal now that he is off propofol. Cardiac: Normotensive. No evidence of shock at this time. Not requiring pressors. Gave Lasix today. Respiratory: Emergently intubated in the ER due to angioedema and inability to protect airway. Extubated today. We have sent tryptase, C1 esterase inhibitor and function, C1q, C4. Results are pending. Continue Benadryl, methylprednisolone, and famotidine. Patient received TXA. Continue to hold CHRISTI inhibitor. We will decrease steroids to [address] soft tissue neck showing nonspecific swelling of the left pharyngeal fat. I think it would be worth getting ENT to see him given the CT finding. Has a history of LYNN, does not use CPAP according to patient, may require CPAP at night if he desaturates. GI: Famotidine. Continue docusate, senna and MiraLAX. Will do speech eval and possibly give diet today. RENAL/LYTES: Renal function at baseline. Monitor replace electrolytes as indicated. Given Lasix today 40 resuscitation. : Cook catheter in place. Monitor strict I's and O's. ENDO: Mildly hyperglycemic. Will hold off on insulin as we are decreasing the steroids and his blood sugar will likely decrease. HEME: Normal cell counts. Monitor CBC in AM. ID: No obvious infectious etiology at this time. No need for antibiotics. CT soft tissue of the neck does show some nonspecific edema of the left pharyngeal fat. No abscess. Feeding: Swallow eval, can have diet if he passes Fluids: None Analgesia: None Activity: Up to chair Thromboprophylaxis: Lovenox Ulcer prophylaxis: Famotidine Glycemic control: Monitor blood glucose, not on insulin at this time. Bowels: Continue docusate, senna and MiraLAX Indwelling catheters: Cook, PIV Antibiotics: None Plan: Patient can be moved out of the ICU today. Please consult ENT given CT findings and recent angioedema. We have decrease steroids, continue 60 mg daily for now, continue Benadryl and famotidine. We have started alcohol withdrawal protocol now that he is off propofol, I have not ordered benzodiazepines but these may need to be added if he has symptoms of withdrawal. If the patient has oxygen desaturations at night he may require CPAP, he does not use a CPAP at home however he does carry a diagnosis of LYNN. I have personally spent 55 minutes of critical care time in the direct management of this patient. This is a life/limb threatening event. This includes time spent evaluating patient, direct bedside care, chart review, placing orders, interpretation of diagnostic studies, discussion with consultants, patient, and family members, as well as other required patient management activities. This time is exclusive of all separately billable procedures, and teaching time and separate from and in addition to any other critical care service time. Admission and Anticipated Discharge Date Admission Date: August 20, 2025 Subjective Past 24-hour events: Remain on for mechanical ventilation yesterday. He still had significant swelling of his tongue. Underwent CT soft tissue neck that showed layering secretions within the pharynx and upper trachea, no fluid collection that would suggest an abscess, nonspecific infiltrate of the left pharyngeal fat. Remain on steroids, Benadryl and Pepcid. No issues overnight. Rounding: Tongue is less swollen today. There is a good amount of room in his mouth at this time. SAT was performed at bedside. Patient wakes up and behaves appropriately while on low-dose ketamine infusion. He is able to open his mouth wide. Following commands. Has a good cough. Patient was extubated this morning. He is doing well. Voice is good. He did receive a dose of Lasix this morning prior to extubation. Making good urine. Intake: 2406 mL Output: 2650 mL Net: -243 mL Mechanical ventilation: AC 18/500/8/40% Feeding: NPO IV infusions: None Indwelling catheters: Cook catheter, peripheral IV Laboratory: CBC: WBC 10.3, hemoglobin 12.7, platelet 210 Chemistry: Sodium 134, potassium 3.9, chloride 102, bicarb 23, BUN 29, creatinine 1.21, glucose 182, calcium 8.9, magnesium 2.2, AST 34, ALT 43, ABG: None today Review of Systems Review of Systems: Not able to obtain, patient intubated. Physical Exam Physical Exam: Physical examination: General: Obese, sedation has been decreased, he is following commands. HEENT: Significant swelling of the tongue. No significant edema otherwise. -Oral exam shows that the tongue has less swelling compared to yesterday. Skin: Warm and dry. No rashes appreciated. No significant edema of mucous membranes outside of the tongue. Cardiovascular: Heart is a regular rate and rhythm, no murmurs appreciated on my exam. No significant lower extremity edema. Lungs: Clear bilaterally, no wheezing appreciated. On mechanical ventilation. Abdomen: Obese. Nontender to palpation. No masses appreciated. No bruising. Musculoskeletal: Normal muscle mass and tone. No gross joint deformity abnormalities. No effusions appreciated. Neurologic: Awake, following commands, moving all extremities, extraocular movements intact. Nonfocal exam. Results & Data Results & Data Vital Signs (Past 12 Hours) Vital Signs Pulse Resp BP Pulse Ox FiO2 08/22/25 06:02 48 L 18 96 08/22/25 06:00 102/65 08/22/25 06:00 102/65 08/22/25 06:00 102/65 08/22/25 06:00 102/65 08/22/25 05:59 49 L 18 95 08/22/25 05:31 101/59 L 08/22/25 05:31 101/59 L 08/22/25 05:31 101/59 L 08/22/25 05:31 101/59 L 08/22/25 05:31 101/59 L 08/22/25 05:29 49 L 18 96 08/22/25 05:01 99/62 L 08/22/25 05:01 99/62 L 08/22/25 05:01 99/62 L 08/22/25 05:01 99/62 L 08/22/25 05:01 99/62 L 08/22/25 05:00 51 L 19 95 08/22/25 04:31 100/60 08/22/25 04:31 100/60 08/22/25 04:31 100/60 08/22/25 04:31 100/60 08/22/25 04:31 100/60 08/22/25 04:30 42 L 18 95 08/22/25 04:00 105/65 08/22/25 04:00 105/65 08/22/25 04:00 105/65 08/22/25 04:00 105/65 08/22/25 04:00 49 L 18 96 08/22/25 04:00 400 08/22/25 03:35 45 L 18 95 40 08/22/25 03:30 46 L 18 95 08/22/25 03:30 106/66 08/22/25 03:30 106/66 08/22/25 03:30 106/66 08/22/25 03:30 106/66 08/22/25 03:01 95/57 L 08/22/25 03:01 95/57 L 08/22/25 03:01 95/57 L 08/22/25 03:01 95/57 L 08/22/25 03:01 95/57 L 08/22/25 03:00 43 L 18 95 08/22/25 02:30 42 L 18 96 08/22/25 02:30 102/64 08/22/25 02:30 102/64 08/22/25 02:30 102/64 08/22/25 02:30 102/64 08/22/25 02:01 98/63 L 08/22/25 02:01 98/63 L 08/22/25 02:01 98/63 L 08/22/25 02:01 98/63 L 08/22/25 02:01 98/63 L 08/22/25 02:00 43 L 18 95 08/22/25 01:31 111/60 08/22/25 01:31 111/60 08/22/25 01:31 111/60 08/22/25 01:31 111/60 08/22/25 01:31 111/60 08/22/25 01:30 44 L 18 96 08/22/25 01:00 43 L 18 94 08/22/25 01:00 94/58 L 08/22/25 01:00 94/58 L 08/22/25 01:00 94/58 L 08/22/25 01:00 94/58 L 08/22/25 01:00 94/58 L 08/22/25 00:30 43 L 18 95 08/22/25 00:30 97/58 L 08/22/25 00:30 97/58 L 08/22/25 00:30 97/58 L 08/22/25 00:30 97/58 L 08/22/25 00:30 97/58 L 08/22/25 00:00 41 L 18 94 08/22/25 00:00 99/58 L 08/22/25 00:00 99/58 L 08/22/25 00:00 99/58 L 08/22/25 00:00 99/58 L 08/22/25 00:00 99/58 L 08/22/25 00:00 40 08/21/25 23:30 46 L 18 08/21/25 23:30 98/63 L 08/21/25 23:30 98/63 L 08/21/25 23:30 98/63 L 08/21/25 23:30 98/63 L 08/21/25 23:20 42 L 18 96 40 08/21/25 23:00 92/55 L 08/21/25 23:00 92/55 L 08/21/25 23:00 92/55 L 08/21/25 23:00 92/55 L 08/21/25 23:00 92/55 L 08/21/25 23:00 42 L 18 94 08/21/25 22:30 43 L 18 94 08/21/25 22:30 96/57 L 08/21/25 22:30 96/57 L 08/21/25 22:30 96/57 L Coding Level of Care Code 46797 CRITICAL CARE 1ST 30-74M Diagnoses Angioedema due to angiotensin converting enzyme inhibitor (CHRISTI-I) T78.3XXA; T46.4X5A Required emergency intubation Z98.890 Hypertension I10 Alcohol use disorder F10.90 Obstructive sleep apnea G47.33
--- NOTE | 2025-08-22 11:41 | Hospitalist Progress Note ---
Date of Service August 22, 2025 Assessment & Plan (1) Angioedema due to angiotensin converting enzyme inhibitor (CHRISTI-I): Plan: Lisinopril has been stopped. He was able to be extubated earlier this morning, August 22. PCP will have to arrange outpatient ENT follow-up for further evaluation of the pharyngeal swelling which may yet resolve since his lisinopril has been discontinued. Blood pressure remained stable. He remains on intravenous Solu-Medrol. (2) HTN (hypertension): Plan: Blood pressure remains in an acceptable range off of lisinopril. Continue amlodipine. (3) Dyslipidemia: Plan: Currently stable. He takes rosuvastatin (4) NAFLD (nonalcoholic fatty liver disease): Plan: LFTs are mildly elevated and will be followed (5) Morbid obesity: Plan: BMI greater than 40. Significant weight loss recommended (6) Hypomagnesemia: Plan: Corrected with parenteral replacement. Serial labs Plan Will transfer out of the ICU today, August 22. OT and PT assessments have been requested. Hopefully he can be discharged back to home within the next day or 2. Admission and Anticipated Discharge Date Admission Date: August 20, 2025 Subjective The patient was extubated earlier this morning, August 22. He is alert and oriented. Speech therapy has been consulted to evaluate the patient. Blood pressure is stable off of lisinopril. Magnesium corrected to 2.2. He will be moved out of the ICU today, August 22. Review of Systems 2 Review of Systems: Constitutionalno fever or chills ENTno blurred vision, no double vision, no epistaxis, no sore throat. Complaining of xerostomia Respiratoryno cough, no wheezing, no shortness of breath Cardiacno palpitations, no chest pain, no syncope Kylah nausea, vomiting, diarrhea, melena, hematochezia GUno urinary retention, no urinary incontinence, no dysuria, no hematuria Musculoskeletalno joint pain, no muscle tenderness Skinno bruising, no rashes, no pruritus Neurono isolated weakness, no paresthesia, no weakness Psychno depression, no anxiety Physical Exam 2 Physical Exam: General-alert and oriented x3, no fever, no chills HEENT-head atraumatic and normocephalic, pupils equal and reactive to light, extraocular muscles intact. His tongue appears mildly edematous but there is no respiratory compromise. No stridor Neck-no lymphadenopathy or thyromegaly, trachea midline Chest-clear to auscultation. No rales, wheezing or rhonchi Cardiac-regular rate and rhythm, normal S1 and S2 Abdomen-normal bowel sounds, no hepatosplenomegaly Extremities-no cyanosis, clubbing, or edema Neuro-cranial nerves II through XII intact, motor and sensory function within normal limits, strength symmetrical, no focal deficits Psych-normal affect, normal mood Results & Data Results & Data Vital Signs (Past 12 Hours) Vital Signs Pulse Resp BP Pulse Ox FiO2 08/22/25 10:01 11508/22/25 10:01 11508/22/25 10:01 11508/22/25 10:01 11508/22/25 10:01 11508/22/25 10:00 78 12 95 08/22/25 09:31 103/58 L 08/22/25 09:31 103/58 L 08/22/25 09:31 103/58 L 08/22/25 09:31 103/58 L 08/22/25 09:31 103/58 L 08/22/25 09:30 68 16 92 08/22/25 09:01 104/61 08/22/25 09:01 104/61 08/22/25 09:01 104/61 08/22/25 09:01 104/61 08/22/25 09:01 104/61 08/22/25 09:00 93 H 20 96 08/22/25 08:31 127/83 08/22/25 08:31 127/83 08/22/25 08:31 127/83 08/22/25 08:31 127/83 08/22/25 08:31 127/83 08/22/25 08:30 81 10 L 97 08/22/25 08:01 124/78 08/22/25 08:01 124/78 08/22/25 08:01 124/78 08/22/25 08:01 124/78 08/22/25 08:01 124/78 08/22/25 08:00 71 14 99 08/22/25 07:31 103/64 08/22/25 07:31 103/64 08/22/25 07:31 103/64 08/22/25 07:31 103/64 08/22/25 07:30 44 L 18 96 08/22/25 07:15 55 L 18 96 40 08/22/25 07:01 102/64 08/22/25 07:00 43 L 18 102/64 97 08/22/25 06:02 48 L 18 96 08/22/25 06:00 102/65 08/22/25 06:00 102/65 08/22/25 06:00 102/65 08/22/25 06:00 102/65 08/22/25 05:59 49 L 18 95 08/22/25 05:31 101/59 L 08/22/25 05:31 101/59 L 08/22/25 05:31 101/59 L 08/22/25 05:31 101/59 L 08/22/25 05:31 101/59 L 08/22/25 05:29 49 L 18 96 08/22/25 05:01 99/62 L 08/22/25 05:01 99/62 L 08/22/25 05:01 99/62 L 08/22/25 05:01 99/62 L 08/22/25 05:01 99/62 L 08/22/25 05:00 51 L 19 95 08/22/25 04:31 100/60 08/22/25 04:31 100/60 08/22/25 04:31 100/60 08/22/25 04:31 100/60 08/22/25 04:31 100/60 08/22/25 04:30 42 L 18 95 08/22/25 04:00 105/65 08/22/25 04:00 105/65 08/22/25 04:00 105/65 08/22/25 04:00 105/65 08/22/25 04:00 49 L 18 96 08/22/25 04:00 400 08/22/25 03:35 45 L 18 95 40 08/22/25 03:30 46 L 18 95 08/22/25 03:30 106/66 08/22/25 03:30 106/66 08/22/25 03:30 106/66 08/22/25 03:30 106/66 08/22/25 03:01 95/57 L 08/22/25 03:01 95/57 L 08/22/25 03:01 95/57 L 08/22/25 03:01 95/57 L 08/22/25 03:01 95/57 L 08/22/25 03:00 43 L 18 95 08/22/25 02:30 42 L 18 96 08/22/25 02:30 102/64 08/22/25 02:30 102/64 08/22/25 02:30 102/64 08/22/25 02:30 102/64 08/22/25 02:01 98/63 L 08/22/25 02:01 98/63 L 08/22/25 02:01 98/63 L 08/22/25 02:01 98/63 L 08/22/25 02:01 98/63 L 08/22/25 02:00 43 L 18 95 08/22/25 01:31 111/60 08/22/25 01:31 111/60 08/22/25 01:31 111/60 08/22/25 01:31 111/60 08/22/25 01:31 111/60 08/22/25 01:30 44 L 18 96 08/22/25 01:00 43 L 18 94 08/22/25 01:00 94/58 L 08/22/25 01:00 94/58 L 08/22/25 01:00 94/58 L 08/22/25 01:00 94/58 L 08/22/25 01:00 94/58 L 08/22/25 00:30 43 L 18 95 08/22/25 00:30 97/58 L 08/22/25 00:30 97/58 L 08/22/25 00:30 97/58 L 08/22/25 00:30 97/58 L 08/22/25 00:30 97/58 L 08/22/25 00:00 41 L 18 94 08/22/25 00:00 99/58 L 08/22/25 00:00 99/58 L 08/22/25 00:00 99/58 L 08/22/25 00:00 99/58 L 08/22/25 00:00 99/58 L 08/22/25 00:00 40 Laboratory Results 08/22/25 04:48 08/22/25 04:48 PG Care Time/CCT Total # of Minutes Spent Total Time Spent with Patient: Total time spent is greater than 50% in coordination of care (as documented) at patient's floor/unit and/or counseling patient: Coding Level of Care Code 15408 SUB INP/OBS CARE 350MIN Diagnoses Angioedema due to angiotensin converting enzyme inhibitor (CHRISTI-I) T78.3XXA; T46.4X5A HTN (hypertension) I10 Dyslipidemia E78.5 NAFLD (nonalcoholic fatty liver disease) K76.0 Morbid obesity E66.01 Hypomagnesemia E83.42
[2025-08-22] MEDS ORDERED: ACETAMINOPHEN 325 MG TAB PO PRN (12:13)
[2025-08-22] MEDS ORDERED: ONDANSETRON INJ 2 MG/ML 2 ML VIAL IV PRN (12:13)
[2025-08-22] MEDS: SODIUM CHLORIDE 0.9% 1,000 ML IV SCH (16:34)
[2025-08-22] MEDS ORDERED: IPRATROPIUM BROMIDE NASAL SPRAY 0.03% 30 ML PRN (22:38)
[2025-08-22] MEDS: FLUTICASONE PROPIONATE NA SPR 16 GM BTL SCH (23:25)
[2025-08-23 06:29] LABS: Hematocrit (blood only) 39.3 % (42.0-52.0); Hemoglobin 13.4 g/dL (14.0-18.0); Immature Granulocytes # (auto) 0.06 K/uL (0.01-0.20); Immature Granulocytes % (auto) 0.6 %; Mean Corpuscular Hemoglobin 32.1 pg (25.0-34.0); Mean Corpuscular Volume 94.0 fL (80.0-100.0); Platelet Count 202 K/uL (130-400); RDW Standard Deviation 44.7 fL (36.4-46.3); Red Blood Count 4.18 M/uL (4.70-6.10); White Blood Count 9.76 K/ul (4.8-10.8)
[2025-08-23 06:56] LABS: Alanine Aminotransferase 44.0 U/L (7-52); Albumin Globulin Ratio 1.2 (0.9-2); Albumin Level 3.9 gm/dl (3.4-5.0); Alkaline Phosphatase 75.0 U/L (34-104); Anion Gap 9.0 (3-11); Bilirubin,Total 0.8 mg/dl (0.2-1.0); Blood Urea Nitrogen 35.0 mg/dl (6-23); Calcium 8.8 mg/dl (8.6-10.3); Carbon Dioxide 27.0 mmol/L (21-32); Chloride 102.0 mmol/L (98-107); Creatinine Clr Calc Pharmacy 91.2 ml/min; Globulin 3.2 gm/dl (2.5-4.0); Glucose 131.0 mg/dl (70-99(Fasting)); Potassium 3.6 mmol/L (3.5-5.1); Sodium 138.0 mmol/L (136-145); Total Protein 7.1 gm/dl (6.0-8.3)
--- NOTE | 2025-08-23 09:46 | Hospitalist Progress Note ---
Date of Service August 23, 2025 Assessment & Plan (1) Angioedema due to angiotensin converting enzyme inhibitor (CHRISTI-I): Plan: Lisinopril has been stopped. He was able to be extubated on August 22. PCP will have to arrange outpatient ENT follow-up for further evaluation of the pharyngeal swelling which may yet resolve since his lisinopril has been discontinued. Blood pressure remains stable. Solu-Medrol switched to oral prednisone which will eventually be tapered off. (2) HTN (hypertension): Plan: Blood pressure remains in an acceptable range off of lisinopril. Continue amlodipine. (3) Dyslipidemia: Plan: Currently stable. He takes rosuvastatin (4) NAFLD (nonalcoholic fatty liver disease): Plan: LFTs are mildly elevated and will be followed (5) Morbid obesity: Plan: BMI greater than 40. Significant weight loss recommended (6) Hypomagnesemia: Plan: Corrected with parenteral replacement. Serial labs Plan He may need to go to SNF for a while before he can go home. OT and PT assessments requested. Admission and Anticipated Discharge Date Admission Date: August 20, 2025 Subjective Alert and oriented. No acute distress. He is swallowing without difficulty. Blood pressure remained stable off lisinopril. He was extubated yesterday, August 22. Magnesium corrected to 2.2. He is agreeable to having the Cook catheter removed since it is a potential source of infection. OT and PT assessments requested Review of Systems 2 Review of Systems: Constitutionalno fever or chills ENTno blurred vision, no double vision, no epistaxis, no sore throat. Complaining of xerostomia Respiratoryno cough, no wheezing, no shortness of breath Cardiacno palpitations, no chest pain, no syncope Kylah nausea, vomiting, diarrhea, melena, hematochezia GUno urinary retention, no urinary incontinence, no dysuria, no hematuria Musculoskeletalno joint pain, no muscle tenderness Skinno bruising, no rashes, no pruritus Neurono isolated weakness, no paresthesia, no weakness Psychno depression, no anxiety Physical Exam 2 Physical Exam: General-alert and oriented x3, no fever, no chills HEENT-head atraumatic and normocephalic, pupils equal and reactive to light, extraocular muscles intact. His tongue appears less edematous and there is no respiratory compromise. No stridor Neck-no lymphadenopathy or thyromegaly, trachea midline Chest-clear to auscultation. No rales, wheezing or rhonchi Cardiac-regular rate and rhythm, normal S1 and S2 Abdomen-normal bowel sounds, no hepatosplenomegaly Extremities-no cyanosis, clubbing, or edema Neuro-cranial nerves II through XII intact, motor and sensory function within normal limits, strength symmetrical, no focal deficits Psych-normal affect, normal mood Results & Data Results & Data Vital Signs (Past 12 Hours) Vital Signs Temp Pulse Pulse Resp BP BP Pulse Ox 08/23/25 08:21 37.0 C 60 18 126/79 93 08/23/25 03:35 08/23/25 03:08 36.8 C 57 L 20 114/69 95 08/22/25 23:40 75 08/22/25 22:51 36.9 C 62 18 109/73 92 O2 Del Method 08/23/25 08:21 Room Air 08/23/25 03:35 Room Air 08/23/25 03:08 Room Air 08/22/25 23:40 08/22/25 22:51 Room Air Laboratory Results 08/23/25 05:37 08/23/25 05:37 PG Care Time/CCT Total # of Minutes Spent Total Time Spent with Patient: Total time spent is greater than 50% in coordination of care (as documented) at patient's floor/unit and/or counseling patient: Coding Level of Care Code 80340 SUB INP/OBS CARE 3/50MIN Diagnoses Angioedema due to angiotensin converting enzyme inhibitor (CHRISTI-I) T78.3XXA; T46.4X5A HTN (hypertension) I10 Dyslipidemia E78.5 NAFLD (nonalcoholic fatty liver disease) K76.0 Morbid obesity E66.01 Hypomagnesemia E83.42
[2025-08-23] MEDS: THIAMINE HCL 100 MG TAB PO SCH (10:12)
[2025-08-24 06:28] LABS: Blood Urea Nitrogen 36 mg/dl (6-23); Calcium 8.7 mg/dl (8.6-10.3); Carbon Dioxide 24 mmol/L (21-32); Chloride 105 mmol/L (98-107); Creatinine Clr Calc Pharmacy 108.7 ml/min; Glucose 119 mg/dl (70-99(Fasting))
[2025-08-24 07:25] LABS: Potassium 3.4 mmol/L (3.5-5.1); Sodium 138.0 mmol/L (136-145)
[2025-08-24] MEDS: POTASSIUM CHLORIDE CRTAB 20 MEQ TABCR PO ONE (09:47)
--- NOTE | 2025-08-24 11:37 | Hospitalist Progress Note ---
Date of Service August 24, 2025 Assessment & Plan (1) Angioedema due to angiotensin converting enzyme inhibitor (CHRISTI-I): Plan: Lisinopril has been stopped. He was able to be extubated on August 22. PCP will have to arrange outpatient ENT follow-up for further evaluation of the pharyngeal swelling which may yet resolve since his lisinopril has been discontinued. Blood pressure is mildly elevated but does not need additional treatment at this time. Solu-Medrol has been switched to switched to oral prednisone which will eventually be tapered off. (2) HTN (hypertension): Plan: Blood pressure has increased slightly off of lisinopril. Continue amlodipine. Amlodipine dosage may need to be uptitrated to 10 mg daily before discharge (3) Dyslipidemia: Plan: Currently stable. He takes rosuvastatin (4) NAFLD (nonalcoholic fatty liver disease): Plan: LFTs are mildly elevated and will be followed (5) Morbid obesity: Plan: BMI greater than 40. Significant weight loss recommended (6) Hypomagnesemia: Plan: Corrected with parenteral replacement. Serial labs Plan Hopeful discharge to home tomorrow, August 25 Admission and Anticipated Discharge Date Admission Date: August 20, 2025 Subjective Alert and oriented. He is swallowing well. He is able to ambulate. He is voiding without difficulty without the Cook catheter. I spoke to his sister by phone today, August 24. Solu-Medrol has been switched to oral prednisone yesterday, August 23. Blood pressure is mildly elevated but does not need any additional treatment at this time. Potassium is slightly low at 3.4 and oral replacement ordered. Hopefully he can go home tomorrow, August 25 Review of Systems 2 Review of Systems: Constitutionalno fever or chills ENTno blurred vision, no double vision, no epistaxis, no sore throat. Complaining of xerostomia Respiratoryno cough, no wheezing, no shortness of breath Cardiacno palpitations, no chest pain, no syncope Kylah nausea, vomiting, diarrhea, melena, hematochezia GUno urinary retention, no urinary incontinence, no dysuria, no hematuria Musculoskeletalno joint pain, no muscle tenderness Skinno bruising, no rashes, no pruritus Neurono isolated weakness, no paresthesia, no weakness Psychno depression, no anxiety Physical Exam 2 Physical Exam: General-alert and oriented x3, no fever, no chills HEENT-head atraumatic and normocephalic, pupils equal and reactive to light, extraocular muscles intact. His tongue appears less edematous and there is no respiratory compromise. No stridor Neck-no lymphadenopathy or thyromegaly, trachea midline Chest-clear to auscultation. No rales, wheezing or rhonchi Cardiac-regular rate and rhythm, normal S1 and S2 Abdomen-normal bowel sounds, no hepatosplenomegaly Extremities-no cyanosis, clubbing, or edema Neuro-cranial nerves II through XII intact, motor and sensory function within normal limits, strength symmetrical, no focal deficits Psych-normal affect, normal mood Results & Data Results & Data Vital Signs (Past 12 Hours) Vital Signs Temp Pulse Pulse Resp BP BP Pulse Ox 08/24/25 10:25 80 08/24/25 10:14 36.8 C 81 18 161/87 H 96 08/24/25 09:52 08/24/25 07:47 81 08/24/25 07:28 36.7 C 61 18 153/84 H 95 08/24/25 03:54 37.0 C 75 18 141/92 H 95 O2 Del Method 08/24/25 10:25 08/24/25 10:14 Room Air 08/24/25 09:52 Room Air 08/24/25 07:47 08/24/25 07:28 Room Air 08/24/25 03:54 Room Air Laboratory Results 08/23/25 05:37 08/24/25 06:49 PG Care Time/CCT Total # of Minutes Spent Total Time Spent with Patient: Total time spent is greater than 50% in coordination of care (as documented) at patient's floor/unit and/or counseling patient: Coding Level of Care Code 92124 SUB INP/OBS CARE 2/35MIN Diagnoses Angioedema due to angiotensin converting enzyme inhibitor (CHRISTI-I) T78.3XXA; T46.4X5A HTN (hypertension) I10 Dyslipidemia E78.5 NAFLD (nonalcoholic fatty liver disease) K76.0 Morbid obesity E66.01 Hypomagnesemia E83.42
[2025-08-24] MEDS: FAMOTIDINE 20 MG TAB PO SCH (17:15)
[2025-08-25 07:13] LABS: Anion Gap 7.0 (3-11); Blood Urea Nitrogen 33.0 mg/dl (6-23); Calcium 8.7 mg/dl (8.6-10.3); Carbon Dioxide 25.0 mmol/L (21-32); Chloride 106.0 mmol/L (98-107); Creatinine Clr Calc Pharmacy 122.4 ml/min; Glucose 109.0 mg/dl (70-99(Fasting)); Potassium 4.0 mmol/L (3.5-5.1); Sodium 138.0 mmol/L (136-145)
[2025-08-25 08:09] VITALS: RESP 18; TEMP 98.5; O2SAT 96
--- NOTE | 2025-08-25 10:20 | Discharge Summary ---
Discharge Summary Date of Service August 25, 2025 Principal Dx & Hospital Course #1 = Principal Diagnosis (1) Angioedema due to angiotensin converting enzyme inhibitor (CHRISTI-I): Lisinopril has been stopped. He was able to be extubated on August 22. PCP will have to arrange outpatient ENT follow-up if it is required for further evaluation of the pharyngeal swelling which may yet resolve since his lisinopril has been discontinued. Blood pressure is mildly elevated off of lisinopril and amlodipine has been uptitrated to 10 mg daily. Solu-Medrol has been switched to switched to oral prednisone which will eventually be tapered off. (2) HTN (hypertension): Blood pressure has increased slightly off of lisinopril. Amlodipine dosage has been uptitrated to 10 mg daily. (3) Dyslipidemia: Currently stable. He takes rosuvastatin (4) NAFLD (nonalcoholic fatty liver disease): LFTs are mildly elevated and will be followed (5) Morbid obesity: BMI greater than 40. Significant weight loss recommended (6) Hypomagnesemia: Corrected with parenteral replacement. Serial labs Plan Home today, August 25 Admission HPI Per Admitting Provider 69-year-old white male who presented to the ED with shortness of breath related to swelling of his tongue. This was thought to be due to CHRISTI inhibitor side effect. He was short of breath and had compromised airway and was subsequently intubated in the ED and is now on IV sedation and ventilator support. Potassium is slightly low at 3.4. Liver function enzymes are slightly elevated. Admission chest x-ray is clear and admission EKG reveals normal sinus rhythm with first-degree AV block and left anterior hemiblock. He will be admitted to the ICU for further care including ventilator management, IV sedation management and further treatment Discharge Exam General-alert and oriented x3, no fever, no chills HEENT-head atraumatic and normocephalic, pupils equal and reactive to light, extraocular muscles intact. Lingual edema has resolved. Neck-no lymphadenopathy or thyromegaly, trachea midline Chest-clear to auscultation. No rales, wheezing or rhonchi Cardiac-regular rate and rhythm, normal S1 and S2 Abdomen-normal bowel sounds, no hepatosplenomegaly Extremities-no cyanosis, clubbing, or edema Neuro-cranial nerves II through XII intact, motor and sensory function within normal limits, strength symmetrical, no focal deficits Psych-normal affect, normal mood Discharge Plan Discharge Items Patient Disposition: Home - Self-Care Reason For Visit: LINGUAL ANGIOEDEMA Discharge Diagnosis: Lingual angioedema, hypertension, hypokalemia Condition on Discharge: Good Activity: Resume your previous activity Non-emergency contact: Primary Care Provider Call non-emergency contact if: your symptoms worsen Follow-up/Referrals: Haresh Davidson III, CRNP [Primary Care Provider] - Diet: Regular and Heart Healthy Addtl Attending Provider Instructions: Lisinopril has been stopped. Amlodipine has been increased to 10 mg daily. A new prescription has been sent to your [facility] pharmacy. Take prednisone 10 mg twice a day for 2 days then 10 mg once a day for 2 days then stop. See your primary care provider as soon as possible for follow-up Pending Studies at Discharge: No Stand-Alone Forms: My [facility] [place] happin!, Smoking Cessation Medications and DC Order Prescriptions: New prednisone 10 mg Tablet See Rx Instructions .ROUTE .COMPLEX Qty: 6 0RF Rx Instructions: 10 mg orally twice a day for 2 days then 10 mg once a day for 2 days then stop amlodipine 10 mg tablet 10 mg PO DAILY Qty: 30 0RF Continued hydrochlorothiazide 25 mg tablet 25 mg PO QAM Qty: 90 3RF hydroxyzine HCl 50 mg tablet 50 mg PO HS PRN (Reason: anxiety) Qty: 90 0RF vitamin B complex Tablet 1 tab PO DAILY mesalamine 1.2 gram tablet,delayed release (DR/EC) 2.4 g PO QAM Qty: 180 3RF fluticasone propionate 50 mcg/actuation spray,suspension 2 spray intranasal DAILY Qty: 16 11RF Rx Instructions: administer into each nostril ipratropium bromide 21 mcg (0.03 %) spray,non-aerosol 2 spray intranasal TID PRN (Reason: postnasal drip) Qty: 30 11RF Rx Instructions: administer into each nostril Medical Marijuana 1 unit 1 applic PO UD PRN (Reason: anxiety ) rosuvastatin 10 mg tablet 10 mg PO DAILY Rx Instructions: TAKE 1 TABLET DAILY Discontinued amlodipine 5 mg tablet 5 mg PO QAM Qty: 90 3RF lisinopril 40 mg tablet 40 mg PO DAILY Rx Instructions: TAKE 1 TABLET DAILY Discharge Orders: Discharge Order (Routine); Ordered 08/25/25 Ordered By: Markus Paz Admission Data Admit Date/Time: 08/20/25 15:48 Attending Provider: Markus Paz Admit Provider: Markus Paz Primary Care Provider: Haresh Davidson III Other Providers: Markus Paz Hospital Stay Data Consultations 08/20/25 14:43 ED Decision to Admit Stat Diagnostic Imagining Performed 08/21/25 12:34 CT neck soft tissues [CT soft tissue neck w con] Urgent Pending Results Patient Have Any Pending Studies at Discharge: No Discharge Instructions Given to Patient (Per Discharging Provider) Lisinopril has been stopped. Amlodipine has been increased to 10 mg daily. A new prescription has been sent to your [facility] pharmacy. Take prednisone 10 mg twice a day for 2 days then 10 mg once a day for 2 days then stop. See your primary care provider as soon as possible for follow-up Total Time Total Time Spent Total Time Spent (In Minutes): 45 minutes. Total time included patient exam, discharge planning, medication reconciliation Coding Level of Care Code 29033 INP/OBS DISCH >30 MIN Diagnoses Angioedema due to angiotensin converting enzyme inhibitor (CHRISTI-I) T78.3XXA; T46.4X5A HTN (hypertension) I10 Dyslipidemia E78.5 NAFLD (nonalcoholic fatty liver disease) K76.0 Morbid obesity E66.01 Hypomagnesemia E83.42
[2025-08-25 10:35] VITALS: BP 156/86; PULSE 81
[2025-08-25 12:07] LABS: C1 Esterase Inhib Functional >100 % (>=68)
--- NOTE | 2025-08-28 07:23 | Coding Query ---
CODING QUERY To promote full compliance with coding requirements relating to patient care, provider participation is requested in all cases of tube operator uncertainty. Please assist us with the question(s) below: Coding Question(s): Pt admitted for angioedema due to Lisinopril. Pt with swollen tongue, intubated/vented for airway protection. Please document, if known or suspected, the diagnosis responsible for the intubation. Thanks for your help. Moses Gerardo [facility] Physician's Response(s): Angioedema of tongue Principal Diagnosis: "that condition established after study, to be chiefly responsible for occasioning the admission of the patient to the hospital for care." Co-Existing Principal Diagnosis: "when two or more diagnoses equally meet the criteria for principal diagnosis as determined by the circumstances of admission, diagnostic work up, and/or therapy provided, and the Alphabetic Index, Tabular List, or another coding guideline does not provide sequencing direction, any one of the diagnoses may be sequenced first." "When the physician has documented what appears to be a current diagnosis in the body of the record, but has not included the diagnosis in the final diagnostic statement, the physician should be asked whether the diagnosis should be added." (Source Coding Clinic 2 QTR90. p3-4) SHYANNE
== END 2025-08-25 14:05 | disposition home or self-care (01) | DRG 916 ==
LOC: SUATTDRO → ED 13:18 → 1E 15:48 → 4W 08-22 16:19 → 2N 08-24 10:17